=== PATIENT | female | born 1955 | race Caucasian/White ===

== ENCOUNTER → 2018-01-01 15:27 | Outpatient (CLI) | payer BC, SELFPAY | PROVIDERS: PCP Family Medicine; Visit Provider Family Medicine | DX: G47.30 Sleep apnea, unspecified (principal); G47.10 Hypersomnia, unspecified; R06.83 Snoring; R06.81 Apnea, not elsewhere classified; R53.83 Other fatigue | CPT/HCPCS: 95806 ==

== ENCOUNTER → 2018-07-09 12:12 | Outpatient (CLI) | payer BC, SELFPAY | PROVIDERS: PCP Family Medicine; Visit Provider Family Medicine | DX: I49.9 Cardiac arrhythmia, unspecified (principal) | CPT/HCPCS: 93225; 93226 ==

== ENCOUNTER 2019-07-15 16:14 | Inpatient (IN) ==
--- NOTE | 2019-07-15 17:23 | Progress Note ---
Internal Medicine - PN: Subj *Date: 07/15/19 *Time: 17:20 Interval history: Seen in [facility] with c/o fatigue and chest pain. See H&P. In office Hgb=7.2, Hct=27.4. Admitted for further evaluation and treatment. Exam I & O for Last 24 hours: Intake & Output 07/13/19 07/14/19 07/15/19 07/16/19 11:59 11:59 11:59 11:59 Weight 210 lb 11.2 oz Assessment and Plan (1) Chest pain Current visit: Yes Status: Acute Category: Medical Code(s): R07.9 - Chest pain, unspecified (2) Anemia Current visit: Yes Status: Acute Category: Medical Code(s): D64.9 - Anem ia, unspecified (3) Fatigue Current visit: Yes Status: Acute Category: Medical Code(s): R53.83 - Other fatigue (4) Fatigue associated with anemia Current visit: Yes Status: Acute Category: Medical Code(s): D64.9 - Anemia, unspecified (5) Hypertension Current visit: Yes Status: Acute Category: Medical Code(s): I10 - Essential (primary) hypertension - Assessment and plan all Dx Assessment and Plan for all problems:: See orders.
[2019-07-15 17:49] LABS: Basophils # 0.1 K/mm3 (0-0.2); Basophils % 1.2 % (0.1-2.0); Eosinophils # 0.2 K/mm3 (0.0-0.4); Eosinophils % 2.1 % (0.1-12.0); Hemoglobin 8.1 g/dL (12.2-16.2); Lymphocytes % 27.8 % (10-50); Mean Corpuscular HGB Conc 27.7 g/dL (31.8-35.4); Mean Corpuscular Volume 68.7 fl (81-99); Mean Platelet Volume 8.2 fl (7.4-10.4); Monocytes # 0.5 K/mm3 (0.1-1.0); Neutrophils # 4.4 K/mm3 (1.8-7.8); Neutrophils % 61.9 % (37.0-80.0); Platelet Count 244 K/mm3 (142-424); Red Blood Count 4.26 M/mm3 (4.20-5.40)
[2019-07-15 17:50] LABS: Hematocrit 29.2 % (37.0-47.0)
[2019-07-15 17:58] LABS: INR 0.97 (0.9-1.1); Prothrombin Time 10.1 seconds (9.4-11.8)
[2019-07-15 18:03] LABS: Albumin Level 4.2 gm/dL (3.4-5.0); Albumin/Globulin Ratio 1.1 (1.1-1.8); Anion Gap 11.9 mEq/L (5-15); Bilirubin,Total 0.3 mg/dL (0.2-1.0); Calcium 9.4 mg/dL (8.5-10.1); Globulin 3.9 gm/dl (1.3-3.2); Total Protein,Serum 8.1 gm/dL (6.4-8.2)
[2019-07-15 18:40] LABS: Amylase 71 U/L (25-115)
[2019-07-16 05:59] LABS: Basophils % 0.7 % (0.1-2.0); Eosinophils # 0.1 K/mm3 (0.0-0.4); Eosinophils % 2.4 % (0.1-12.0); Lymphocytes # 1.4 K/mm3 (0.7-4.5); Lymphocytes % 30.6 % (10-50); Mean Corpuscular HGB Conc 27.1 g/dL (31.8-35.4); Mean Corpuscular Volume 67.7 fl (81-99); Mean Platelet Volume 8.9 fl (7.4-10.4); Monocytes # 0.4 K/mm3 (0.1-1.0); Monocytes % 7.9 % (1.7-9.3); Neutrophils # 2.7 K/mm3 (1.8-7.8); Neutrophils % 58.4 % (37.0-80.0); Platelet Count 204 K/mm3 (142-424); Red Cell Distribution Width 18.1 % (11.5-17.5); White Blood Count 4.7 K/mm3 (4.8-10.8)
[2019-07-16 06:03] LABS: Hematocrit 27.1 % (37.0-47.0); Hemoglobin 7.3 g/dL (12.2-16.2)
[2019-07-16 06:23] LABS: Calcium 8.9 mg/dL (8.5-10.1); Chol/HDL Ratio 2.9 (1-3.5)
--- NOTE | 2019-07-16 07:19 | Progress Note ---
[facility] Anesthesia Checklist - Patient Identification Patient Identification: Arm Band, Verbal (Name & ) - Structural Data Admitted From: Inpatient Planned Operative Procedure/s: egd Consent for Planned Operative Procedure(s) Verified: Yes Verified Documents: History and Physical - NPO Status Verified Time NPO: 00:00 - Additional verifications Patient : No Anesthesia Reactions: No Hx Blood Transfusions: No Blood Transfusion Reaction: No Cephalosporin Allergy: No Previous Colonoscopy: Yes - Cardiovascular Assessment Heart Sounds: S1 & S2 Pulse Strength: Baseline Pulse Rhythm: Regular Peripheral Edema: No - Airway Assessment C-Spine Mobility Assessed: Yes TMJ Mobility Assessed: Yes - Neurological Assessment Level of Consciousness: Awake, Alert, Appropriate Hx Seizures: No Numbness or tingling in extremities: No - Anesthesia Plan Anesthesia Risk discussed: Yes Anesthesia Plan: Verified ASA Class: II Anesthesia Type: [facility] History I have reviewed the patient's past medical history: Yes Medical History: Reports:: Hyperlipidemia, Hypertension Denies:: Cancer, Diabetes Mellitus Type 1, Diabetes Mellitus Type 2, MRSA *Have you ever received a pneumonia vaccine?: No *Have you received a flu vaccine this season?: No Other Medical History: Reports: Anemia, Arthritis, Hypothyroidism Anesthesia experience/problems:: none Laterality Cases: Bilateral: Tonsillectomy Amputation: No Fractures: No - *Social History Educational Level: Completed College Smoking Status: Never smoker Alcohol Intake: never Substance Use Type: unknown *Occupational Status:: retired Housing: house Household Members: spouse *Travel in the last 8 weeks: None Family Hx:: Cancer, Diabetes, Heart Attack, Hypertension
--- NOTE | 2019-07-16 07:40 | Consult Report ---
*Admission Date: 07/15/19 *Reason for consult:: Anemia *History of present illness: This is a 63-year-old female seen in consultation from Dr. Montalvo for evaluation regarding anemia. She presented to her primary care provider yesterday with increasing fatigue and vague chest pain. She was found to be significantly anemic. No other obvious abnormality noted. She was admitted for further evaluation and management. This morning she feels "not too bad". No hematemesis. No definitive melena. Review of Systems - Constitutional Denies chills - Eyes Denies change in vision - ENT Denies difficulty swallowing - *Cardiovascular Reports chest pain - *Respiratory Denies cough - *Gastrointestinal Denies abdominal pain, Denies vomiting blood, Denies bright, red blood in stools - *Genitourinary Denies abnormal vaginal bleeding - *Musculoskeletal Denies deformity [facility] History Medical History: Reports:: Hyperlipidemia, Hypertension Denies:: Cancer, Diabetes Mellitus Type 1, Diabetes Mellitus Type 2, MRSA, Seizures *Have you ever received a pneumonia vaccine?: No *Have you received a flu vaccine this season?: No Other Medical History: Reports: Anemia, Arthritis, Hypothyroidism. Denies: Blood Transfusion Reaction Anesthesia experience/problems:: none Laterality Cases: Bilateral: Tonsillectomy Amputation: No Fractures: No - *Social History Educational Level: Completed College Smoking Status: Never smoker Alcohol Intake: never Substance Use Type: unknown *Occupational Status:: retired Housing: house Household Members: spouse *Travel in the last 8 weeks: None Family Hx:: Cancer, Diabetes, Heart Attack, Hypertension Meds Home Medications Medication Instructions Recorded Confirmed Type Allopurinol [Allopurinol 300mg 300 mg PO DAILY 07/15/19 07/15/19 History tablet] Aspirin [Aspirin 81mg chewable 81 mg PO DAILY 07/15/19 07/15/19 History tab] Cetirizine HCl [Zyrtec] 10 mg PO DAILY 07/15/19 07/15/19 History Cholecalciferol (Vitamin D3) 5,000 unit PO DAILY 07/15/19 07/15/19 History [Vitamin D3] Levothyroxine Sodium 75 mcg PO DAILY 07/15/19 07/15/19 History [Levothyroxine 75mcg (0.075mg) Tab] Metoprolol Succinate 12.5 mg PO DAILY 07/15/19 07/15/19 History Nabumetone 750 mg PO DAILY 07/15/19 07/15/19 History Pravastatin Sodium 80 mg PO DAILY 07/15/19 07/15/19 History Sertraline HCl [Zoloft] 150 mg PO DAILY 07/15/19 07/15/19 History Valsartan/Hydrochlorothiazide 1 each PO DAILY 07/15/19 07/15/19 History [Valsartan-Hctz 160-12.5 mg Tab] raNITIdine HCl [Ranitidine HCl] 150 mg PO BID 07/15/19 07/15/19 History Allergies Allergy/AdvReac Type Severity Reaction Status Date / Time No Known Allergies Allergy Verified 07/15/19 17:13 Exam Vital signs and Labs for Last 24 Hours: Temp Pulse Resp BP Pulse Ox 98.3 F 66 18 108/53 L 98 07/16/19 04:00 07/16/19 04:00 07/16/19 04:00 07/16/19 04:00 07/16/19 04:00 Laboratory Results - last 24 hr 07/15/19 17:30: PT 10.1, INR 0.97 07/15/19 17:30: Sodium 137, Potassium 3.9, Chloride 102, Carbon Dioxide 27, Anion Gap 11.9, BUN 17, Creatinine 0.94, Estimated Creat Clear 89, Estimated GFR 61, Est GFR ( Amer) 73, Glucose 85, Calcium 9.4, Total Bilirubin 0.3, AST 12 L, ALT 18, Alkaline Phosphatase 93, Total Protein 8.1, Albumin 4.2, Globulin 3.9 H, Albumin/Globulin Ratio 1.1 07/15/19 17:30: WBC 7.0, RBC 4.26, Hgb 8.1 L, Hct 29.2 L, MCV 68.7 L, MCH 19.0 L , MCHC 27.7 L, RDW 18.0 H, Plt Count 244, MPV 8.2, Neut % (Auto) 61.9, Lymph % (Auto) 27.8, Duval % (Auto) 7.0, Eos % (Auto) 2.1, Baso % (Auto) 1.2, Neut # (Auto) 4.4, Lymph # (Auto) 2.0, Duval # (Auto) 0.5, Eos # (Auto) 0.2, Baso # (Auto) 0.1 07/15/19 17:30: Troponin I < 0.02 07/15/19 17:30: Ferritin 8 07/15/19 17:30: Blood Type O Positive, Antibody Screen Negative 07/15/19 17:30: Amylase 71, Lipase 282 07/16/19 05:50: Sodium 141, Potassium 4.0, Chloride 105, Carbon Dioxide 27, Anion Gap 13.0, BUN 14, Creatinine 0.80, Estimated Creat Clear 90, Estimated GFR 73, Est GFR ( Amer) 88 D, Glucose 95, Calcium 8.9, Triglycerides 104, Cholesterol 163, LDL Cholesterol 85, VLDL Cholesterol 21, HDL Cholesterol 57, Cholesterol/HDL Ratio 2.9 07/16/19 05:50: WBC 4.7 L D, RBC 4.00 L, Hgb 7.3 L*, Hct 27.1 L, MCV 67.7 L, MCH 18.3 L, MCHC 27.1 L, RDW 18.1 H, Plt Count 204, MPV 8.9, Neut % (Auto) 58.4, Lymph % (Auto) 30.6, Duval % (Auto) 7.9, Eos % (Auto) 2.4, Baso % (Auto) 0.7, Neut # (Auto) 2.7, Lymph # (Auto) 1.4, Duval # (Auto) 0.4, Eos # (Auto) 0.1, Baso # (Auto) 0.0 I & O for Last 24 hours: Intake & Output 07/13/19 07/14/19 07/15/19 07/16/19 11:59 11:59 11:59 11:59 Intake Total 577 / 577 Output Total 2200 / 2200 Balance -1623 / -1623 Weight 212 lb 9 oz - Constitutional no acute distress - *Routine Respiratory Exam Absent: respiratory distress - *Routine Cardiovascular Exam Present: RRR - *Routine Abdominal Exam Present: soft Results - Labs 07/16/19 05:50 07/16/19 05:50 Laboratory Results - last 24 hr 07/15/19 17:30: PT 10.1, INR 0.97 07/15/19 17:30: Sodium 137, Potassium 3.9, Chloride 102, Carbon Dioxide 27, Anion Gap 11.9, BUN 17, Creatinine 0.94, Estimated Creat Clear 89, Estimated GFR 61, Est GFR ( Amer) 73, Glucose 85, Calcium 9.4, Total Bilirubin 0.3, AST 12 L, ALT 18, Alkaline Phosphatase 93, Total Protein 8.1, Albumin 4.2, Globulin 3.9 H, Albumin/Globulin Ratio 1.1 07/15/19 17:30: WBC 7.0, RBC 4.26, Hgb 8.1 L, Hct 29.2 L, MCV 68.7 L, MCH 19.0 L , MCHC 27.7 L, RDW 18.0 H, Plt Count 244, MPV 8.2, Neut % (Auto) 61.9, Lymph % (Auto) 27.8, Duval % (Auto) 7.0, Eos % (Auto) 2.1, Baso % (Auto) 1.2, Neut # (Auto) 4.4, Lymph # (Auto) 2.0, Duval # (Auto) 0.5, Eos # (Auto) 0.2, Baso # (Auto) 0.1 07/15/19 17:30: Troponin I < 0.02 07/15/19 17:30: Ferritin 8 07/15/19 17:30: Blood Type O Positive, Antibody Screen Negative 07/15/19 17:30: Amylase 71, Lipase 282 07/16/19 05:50: Sodium 141, Potassium 4.0, Chloride 105, Carbon Dioxide 27, Anion Gap 13.0, BUN 14, Creatinine 0.80, Estimated Creat Clear 90, Estimated GFR 73, Est GFR ( Amer) 88 D, Glucose 95, Calcium 8.9, Triglycerides 104, Cholesterol 163, LDL Cholesterol 85, VLDL Cholesterol 21, HDL Cholesterol 57, Cholesterol/HDL Ratio 2.9 07/16/19 05:50: WBC 4.7 L D, RBC 4.00 L, Hgb 7.3 L*, Hct 27.1 L, MCV 67.7 L, MCH 18.3 L, MCHC 27.1 L, RDW 18.1 H, Plt Count 204, MPV 8.9, Neut % (Auto) 58.4, Lymph % (Auto) 30.6, Duval % (Auto) 7.9, Eos % (Auto) 2.4, Baso % (Auto) 0.7, Neut # (Auto) 2.7, Lymph # (Auto) 1.4, Duval # (Auto) 0.4, Eos # (Auto) 0.1, Baso # (Auto) 0.0 Assessment and Plan (1) Chest pain Current visit: Yes Status: Acute Category: Medical Code(s): R07.9 - Chest pain, unspecified (2) Anemia Current visit: Yes Status: Acute Category: Medical Code(s): D64.9 - Anemia, unspecified EGD this AM (3) Fatigue Current visit: Yes Status: Acute Category: Medical Code(s): R53.83 - Other fatigue (4) Fatigue associated with anemia Current visit: Yes Status: Acute Category: Medical Code(s): D64.9 - Anemia, unspecified (5) Hypertension Current visit: Yes Status: Acute Category: Medical Code(s): I10 - Essential (primary) hypertension
--- NOTE | 2019-07-16 08:54 | Procedure Note ---
- Procedure: Date: 07/16/19 Procedure Performed:: Esophagogastroduodenoscopy with biopsy Indications:: Anemia Performing Provider:: Luis Medina MD Referring Provider:: Dr. Montalvo Sedation:: Monitored anesthesia care Procedure:: After informed consent was obtained the patient was taken to the endoscopy suite. Sedation ensued after the patient was transferred to the left lateral decubitus position. Pulse, blood pressure, and oxygen saturation were monitored throughout the procedure. The endoscope was advanced beyond the duodenal bulb. Retroflexion within the gastric lumen was accomplished. The gastroscope was carefully removed and the patient was transferred to recovery in stable condition. Please see "findings" and "specimens" below for detail. Findings:: Fairly large sliding hiatal hernia Punctate erythematous changes in cardia / SHH with focal tiny clot (no active bleeding) Very small shallow (essentially healed) duodenal bulb/duodenal sweep ulcerations with no sign of active bleeding Specimens:: Antrum Duodenal bulb/sweep Recommendations:: Continue proton pump inhibition Repeat EGD in 6-8 weeks Colonoscopy at time of repeat EGD UGI/SBFT in near future Capsule endoscopy after UGI/SBFT If no other etiology for bleeding found she will be referred to Dr. Magen Amador at the [facility] for consideration of hiatal hernia repair. Complications:: No immediate Estimated blood obtained (mL): 1
--- NOTE | 2019-07-16 09:03 | Progress Note ---
Internal Medicine - PN: Subj *Date: 07/16/19 *Time: 08:59 Interval history: Patient just returned from EGD this morning. She states her chest pain has improved. Dr. Medina did find a fairly large sliding hiatal hernia and a very small shallow duodenal ulcer. He felt she should continue PPIs and have a repeat EGD in 6 to 8 weeks along with a colonoscopy. He also felt she should have an upper GI and small bowel follow-through in the near future and possibly a capsule endoscopy. He felt if no other etiology was found for the bleeding, she would need to be referred to Dr. Magen Amador at for hiatal hernia repair. The patient's H&H has decreased to this morning. She will need some blood. Exam Vital signs and Labs for Last 24 Hours: Temp Pulse Resp BP Pulse Ox 98.3 F 66 18 108/53 L 98 07/16/19 04:00 07/16/19 04:00 07/16/19 04:00 07/16/19 04:00 07/16/19 08:08 Laboratory Results - last 24 hr 07/15/19 17:30: PT 10.1, INR 0.97 07/15/19 17:30: Sodium 137, Potassium 3.9, Chloride 102, Carbon Dioxide 27, Anion Gap 11.9, BUN 17, Creatinine 0.94, Estimated Creat Clear 89, Estimated GFR 61, Est GFR ( Amer) 73, Glucose 85, Calcium 9.4, Total Bilirubin 0.3, AST 12 L, ALT 18, Alkaline Phosphatase 93, Total Protein 8.1, Albumin 4.2, Globulin 3.9 H, Albumin/Globulin Ratio 1.1 07/15/19 17:30: WBC 7.0, RBC 4.26, Hgb 8.1 L, Hct 29.2 L, MCV 68.7 L, MCH 19.0 L , MCHC 27.7 L, RDW 18.0 H, Plt Count 244, MPV 8.2, Neut % (Auto) 61.9, Lymph % (Auto) 27.8, Davis % (Auto) 7.0, Eos % (Auto) 2.1, Baso % (Auto) 1.2, Neut # (Auto) 4.4, Lymph # (Auto) 2.0, Davis # (Auto) 0.5, Eos # (Auto) 0.2, Baso # (Auto) 0.1 07/15/19 17:30: Troponin I < 0.02 07/15/19 17:30: Ferritin 8 07/15/19 17:30: Blood Type O Positive, Antibody Screen Negative 07/15/19 17:30: Amylase 71, Lipase 282 07/16/19 05:50: Sodium 141, Potassium 4.0, Chloride 105, Carbon Dioxide 27, Anion Gap 13.0, BUN 14, Creatinine 0.80, Estimated Creat Clear 90, Estimated GFR 73, Est GFR ( Amer) 88 D, Glucose 95, Calcium 8.9, Triglycerides 104, Cholesterol 163, LDL Cholesterol 85, VLDL Cholesterol 21, HDL Cholesterol 57, Cholesterol/HDL Ratio 2.9 07/16/19 05:50: WBC 4.7 L D, RBC 4.00 L, Hgb 7.3 L*, Hct 27.1 L, MCV 67.7 L, MCH 18.3 L, MCHC 27.1 L, RDW 18.1 H, Plt Count 204, MPV 8.9, Neut % (Auto) 58.4, Lymph % (Auto) 30.6, Davis % (Auto) 7.9, Eos % (Auto) 2.4, Baso % (Auto) 0.7, Neut # (Auto) 2.7, Lymph # (Auto) 1.4, Davis # (Auto) 0.4, Eos # (Auto) 0.1, Baso # (Auto) 0.0 I & O for Last 24 hours: Intake & Output 07/13/19 07/14/19 07/15/19 07/16/19 11:59 11:59 11:59 11:59 Intake Total 577 / 577 Output Total 2200 / 2200 Balance -1623 / -1623 Weight 212 lb 9 oz - Constitutional no acute distress - *Routine Respiratory Exam Present: CTA bilaterally - *Routine Cardiovascular Exam Present: RRR - *Routine Abdominal Exam Present: soft, normoactive bowel sounds. Absent: tenderness - *Routine Extremities Exam Absent: cyanosis, clubbing, edema - *Routine Skin Exam Present: pallor, warm. Absent: rash - *Routine Neurological Exam Present: alert, oriented X3 Assessment and Plan (1) Chest pain Current visit: Yes Status: Acute Category: Medical Code(s): R07.9 - Chest pain, unspecified (2) Anemia Current visit: Yes Status: Acute Category: Medical Code(s): D64.9 - Anemia, unspecified (3) Fatigue Current visit: Yes Status: Acute Category: Medical Code(s): R53.83 - Other fatigue (4) Fatigue associated with anemia Current visit: Yes Status: Acute Category: Medical Code(s): D64.9 - Anemia, unspecified (5) Hypertension Current visit: Yes Status: Acute Category: Medical Code(s): I10 - Essential (primary) hypertension (6) Hiatal hernia Current visit: Yes Status: Acute Category: Medical Code(s): K44.9 - Diaphragmatic hernia without obstruction or gangrene (7) Duodenal ulcer Current visit: Yes Status: Acute Category: Medical Code(s): K26.9 - Duodenal ulcer, unspecified as acute or chronic, without hemorrhage or perforation - Assessment and plan all Dx Assessment and Plan for all problems:: Will give 2 units of PRBC's this am and discuss further care with Dr. Montalvo.
--- NOTE | 2019-07-16 09:24 | Pharmacy Consult Notes ---
[facility] Pharmacy VTE Monitoring - Patient Demographics Admission date: 07/16/19 Report Date: 07/16/19 Time: 09:24 Allergies/Adverse Reactions: Patient Allergies No Known Allergies Allergy (Verified 07/15/19 17:13) Height: 1.57 m Weight: 96.417 kg Patient Problems: Current Active Problems Chest pain (Acute) Anemia (Acute) Fatigue (Acute) Fatigue associated with anemia (Acute) Hypertension (Acute) Hiatal hernia (Acute) Duodenal ulcer (Acute) - VTE Risk Labs: VTE Related Lab Results Hgb 7.3 g/dL (12.2-16.2) L* 07/16/19 05:50 Hct 27.1 % (37.0-47.0) L 07/16/19 05:50 Plt Count 204 K/mm3 (142-424) 07/16/19 05:50 PT 10.1 seconds (9.4-11.8) 07/15/19 17:30 INR 0.97 (0.9-1.1) 07/15/19 17:30 BUN 14 mg/dL (7-18) 07/16/19 05:50 Creatinine 0.80 mg/dL (0.55-1.02) 07/16/19 05:50 Estimated Creat Clear 90 mL/min (50-200) 07/16/19 05:50 VTE Score: 1 - Prophylaxis Types of VTE Prophylaxis: TEDS Knee High Location of Applied Device: Bilateral Lower Extremeties (JIGAR HOSE ORDERED), Not Applicable
[2019-07-16 18:06] LABS: Hematocrit 34.5 % (37.0-47.0)
[2019-07-16 18:07] LABS: Hemoglobin 10.2 g/dL (12.2-16.2)
--- NOTE | 2019-07-17 09:32 | Progress Note ---
Subjective Patient reports: feels better Exam Vital signs and Labs for Last 24 Hours: Temp Pulse Resp BP Pulse Ox 98.4 F 67 16 109/51 L 94 L 07/17/19 04:00 07/17/19 04:00 07/17/19 04:00 07/17/19 04:00 07/17/19 04:00 Laboratory Results - last 24 hr 07/15/19 13:20: Stool Occult Blood Negative 07/15/19 17:30: Blood Type O Positive, Antibody Screen Negative, Crossmatch (AHG) See Detail 07/16/19 05:50: Blood Type Confirm O Positive 07/16/19 17:50: Hgb 10.2 L D, Hct 34.5 L I & O for Last 24 hours: Intake & Output 07/14/19 07/15/19 07/16/19 07/17/19 11:59 11:59 11:59 10:59 Intake Total 577 / 577 2311 / 2311 Output Total 2200 / 2200 Balance -1623 / -1623 2310 / 2311 Weight 212 lb 9 oz - Constitutional no acute distress - *Routine Respiratory Exam Absent: respiratory distress - *Routine Cardiovascular Exam Present: RRR Progress Note: A&P (1) Chest pain Status: Acute Current Visit: Yes (2) Anemia Status: Acute Assessment and plan: Possibly secondary to focal bleeding of gastric cardia at herniation site. Possibly secondary to duodenal ulcerations. Possibly secondary to other etiology as yet to be determined. Okay from surgical standpoint for discharge home with close outpatient follow-up Repeat EGD and perform colonoscopy in near future UGI/SBFT as outpatient Likely capsule endoscopy as outpatient Possible referral to Dr. Magen Amador at the [facility] for discussion regarding possible repair of hiatal hernia (after above) Current Visit: Yes (3) Fatigue Status: Acute Current Visit: Yes (4) Fatigue associated with anemia Status: Acute Current Visit: Yes (5) Hypertension Status: Acute Current Visit: Yes (6) Hiatal hernia Status: Acute Current Visit: Yes (7) Duodenal ulcer Status: Acute Current Visit: Yes
[2019-07-17 13:01] LABS: Basophils # 0.1 K/mm3 (0-0.2); Basophils % 0.8 % (0.1-2.0); Eosinophils # 0.1 K/mm3 (0.0-0.4); Eosinophils % 2.3 % (0.1-12.0); Hematocrit 35.7 % (37.0-47.0); Hemoglobin 10.3 g/dL (12.2-16.2); Lymphocytes # 1.6 K/mm3 (0.7-4.5); Lymphocytes % 25.5 % (10-50); Mean Corpuscular HGB Conc 28.9 g/dL (31.8-35.4); Mean Corpuscular Volume 73.5 fl (81-99); Mean Platelet Volume 7.4 fl (7.4-10.4); Monocytes # 0.4 K/mm3 (0.1-1.0); Neutrophils % 65.4 % (37.0-80.0); Platelet Count 214 K/mm3 (142-424); Red Blood Count 4.85 M/mm3 (4.20-5.40); Red Cell Distribution Width 21.2 % (11.5-17.5); White Blood Count 6.2 K/mm3 (4.8-10.8)
[2019-07-17 13:14] LABS: Anion Gap 13.1 mEq/L (5-15); Calcium 9.4 mg/dL (8.5-10.1)
--- NOTE | 2019-07-19 21:16 | Discharge Summary ---
General - General Admission date:: 07/15/19 Discharge date: 07/17/19 HPI HPI: Ms. Lew is a 63-year-old female who was seen in the office of [facility] on 07/15/2019 with complaints of fatigue and chest pain. Her hemoglobin in the office was 7.2. She was admitted for further evaluation and treatment. After rechecking her hemoglobin, it had come up to 8.1. A lood transfusion was held and her troponins were negative. She was kept overnight for monitoring. She did have a colonoscopy in 2014 and had a history of an EGD as well. Surgery was consulted. Hospital Course Hospital Course: CXR showed a hiatal hernia but was otherwise negative. Dr. Medina saw the patient and planned for an EGD. This was performed on 07/16/2019 and he found a fairly large sliding hiatal hernia and a very small shallow duodenal bulb ulcer. He recommended to continue PPIs and repeat an EGD in 6 to 8 weeks along with a colonoscopy. He felt she may be an upper GI and small bowel follow-through and a capsule endoscopy. If no other etiology for bleeding was found, he wanted to refer the patient to Dr. Magen Amador at for consideration of her hiatal hernia repair. The patient did tolerate the procedure well. Her hemoglobin dropped to 7.3. She was therefore transfused with 2 units of packed red blood cells. Her troponin was negative and her chest pain resolved. Her stool was negative for blood. Her iron was found to be low. The patient felt better after her blood transfusion and was stable to be discharged home with close outpatient follow- up. Objective Vital signs: Temp Pulse Resp BP Pulse Ox 97.7 F 60 18 133/67 98 07/17/19 08:00 07/17/19 12:00 07/17/19 08:00 07/17/19 08:00 07/17/19 08:00 Narrative: - Constitutional no acute distress - *Routine Respiratory Exam Present: CTA bilaterally - *Routine Cardiovascular Exam Present: RRR - *Routine Abdominal Exam Present: soft, normoactive bowel sounds. Absent: tenderness - *Routine Extremities Exam Absent: cyanosis, clubbing, edema - *Routine Skin Exam Present: pallor, warm. Absent: rash - *Routine Neurological Exam Present: alert, oriented X3 DS: Diagnosis - Discharge Diagnosis (1) Chest pain Status: Acute (2) Anemia Status: Acute (3) Fatigue Status: Acute (4) Fatigue associated with anemia Status: Acute (5) Hypertension Status: Acute (6) Hiatal hernia Status: Acute (7) Duodenal ulcer Status: Acute Discharge Plan - Patient Discharge Instructions ACTIVITY: Continue current activity DIET: continue same diet Patient Instructions: Anemia, Duodenal Ulcer, Upper GI Endoscopy, DI for Upper GI Endoscopy, DI for Surgical Site Infection - Follow up Plan Follow up with: Delmer Montalvo MD [Primary Care Provider] - 07/19/19 Luis Medina MD [Staff Physician] - 1 week Disposition: Home, Self-Long Term Medications: Home Medications Medication Instructions Recorded Confirmed Type Allopurinol [Allopurinol 300mg 300 mg PO DAILY 07/15/19 07/15/19 History tablet] Cetirizine HCl [Zyrtec] 10 mg PO DAILY 07/15/19 07/15/19 History Cholecalciferol (Vitamin D3) 5,000 unit PO DAILY 07/15/19 07/15/19 History [Vitamin D3] Levothyroxine Sodium 75 mcg PO DAILY 07/15/19 07/15/19 History [Levothyroxine 75mcg (0.075mg) Tab] Metoprolol Succinate 12.5 mg PO DAILY 07/15/19 07/15/19 History Pravastatin Sodium 80 mg PO DAILY 07/15/19 07/15/19 History Sertraline HCl [Zoloft] 150 mg PO DAILY 07/15/19 07/15/19 History Valsartan/Hydrochlorothiazide 1 each PO DAILY 07/15/19 07/15/19 History [Valsartan-Hctz 160-12.5 mg Tab] raNITIdine HCl [Ranitidine HCl] 150 mg PO BID 07/15/19 07/15/19 History Ferrous Sulfate [Ferrous Sulfate 325 mg PO TID #100 tab 07/17/19 Rx 325mg Tablet] Pantoprazole Sodium [Protonix 40mg 40 mg PO DAILY #30 tablet. 07/17/19 Rx tablet] Prescriptions/Medication Reconciliation: New Pantoprazole Sodium [Protonix 40mg tablet] 40 mg PO DAILY #30 tablet. Ferrous Sulfate [Ferrous Sulfate 325mg Tablet] 325 mg PO TID #100 tab Continued Pravastatin Sodium 80 mg PO DAILY Sertraline HCl [Zoloft] 150 mg PO DAILY Levothyroxine Sodium [Levothyroxine 75mcg (0.075mg) Tab] 75 mcg PO DAILY Allopurinol [Allopurinol 300mg tablet] 300 mg PO DAILY raNITIdine HCl [Ranitidine HCl] 150 mg PO BID Metoprolol Succinate 12.5 mg PO DAILY Valsartan/Hydrochlorothiazide [Valsartan-Hctz 160-12.5 mg Tab] 1 each PO DAILY Cetirizine HCl [Zyrtec] 10 mg PO DAILY Cholecalciferol (Vitamin D3) [Vitamin D3] 5,000 unit PO DAILY Discontinued Nabumetone 1,500 mg PO DAILY Aspirin [Aspirin 81mg chewable tab] 81 mg PO DAILY - Problem Reconciliation Problems Reviewed?: Yes
== END 2019-07-17 15:05 | disposition home or self-care (01) | DRG 384 ==
LOC: 2ND → OBSVTOIN 16:59
PROVIDERS: ADMIT Family Medicine; ATTEND Family Medicine
CPT/HCPCS: 36415; 71020; 71046; 80048; 80053; 80061; 82150; 82272; 82378; 82607; 82728; 83540; 83550; 83690; 84484; 85014; 85018; 85025; 85610; 86850; 90686; G0328; P9016

== ENCOUNTER → 2019-08-08 08:59 | Outpatient (CLI) | payer BC, SELFPAY ==
--- NOTE | 2019-08-08 09:12 | FL_ITS ---
PROCEDURE: FL UPPER GI SMALL BOWEL CLINICAL INDICATION: gastric ulcer Anemia COMPARISON: No exams were available for comparison TECHNIQUE: FLUOROSCOPY TIME : 2 minutes and 27 seconds FINDINGS: There is mild spasm of the cricopharyngeus muscle. There is a moderate-sized hiatal hernia containing 1/3 of the stomach. This did not reduce during the course of the exam. No obvious ulcer or mass is evident. There is a non constricting Schatzki's ring. The duodenum has an unremarkable appearance as does the remaining portion of the stomach. No ulcer evident. Small bowel examination also performed. No small bowel dilatation, mass, or mucosal abnormality. Spot views of the terminal ileum are unremarkable. The appendix did fill IMPRESSION: 1. Moderate-sized hiatal hernia with non constricting Schatzki's ring. 2. No ulcer or mass identified. 3. Unremarkable small bowel follow through Dictated by: Jude Florian MD 08/16/2019 13:09 Electronically signed by Jude Florian MD in [place] 08/16/2019 13:09
[2019-08-08 09:42] LABS: Hematocrit 41.6 % (37.0-47.0); Hemoglobin 12.1 g/dL (12.2-16.2)
== END ==
PROVIDERS: PCP Family Medicine; Visit Provider Surgery
DX: D64.9 Anemia, unspecified (principal); R13.10 Dysphagia, unspecified
CPT/HCPCS: 36415; 74245; 85014; 85018

== ENCOUNTER → 2020-10-04 11:54 | Outpatient (CLI) | payer BC, SELFPAY ==
[2020-10-04 14:36] LABS: Basophils # 0.1 K/mm3 (0-0.2); Basophils % 0.6 % (0.1-2.0); Eosinophils # 0.1 K/mm3 (0.0-0.4); Eosinophils % 1.7 % (0.1-12.0); Hematocrit 41.6 % (37.0-47.0); Lymphocytes # 2.4 K/mm3 (0.7-4.5); Lymphocytes % 30.1 % (10-50); Mean Corpuscular HGB Conc 33.7 g/dL (31.8-35.4); Mean Corpuscular Hemoglobin 29.9 pg (27.0-31.2); Mean Corpuscular Volume 88.6 fl (81-99); Mean Platelet Volume 7.6 fl (7.4-10.4); Monocytes # 0.6 K/mm3 (0.1-1.0); Neutrophils # 4.8 K/mm3 (1.8-7.8); Neutrophils % 59.7 % (37.0-80.0); Platelet Count 161 K/mm3 (142-424); Red Blood Count 4.69 M/mm3 (4.20-5.40); Red Cell Distribution Width 14.3 % (11.5-17.5)
[2020-10-05 10:58] LABS: Covid-19 Nasal PCR Sendout P&C Negative
== END ==
PROVIDERS: PCP Family Medicine; Visit Provider Nurse Practitioner
DX: Z20.822 Contact with and (suspected) exposure to COVID-19 (principal)
CPT/HCPCS: 36415; 85025; U0004

== ENCOUNTER → 2021-03-15 09:16 | Outpatient (CLI) | payer BC, SELFPAY ==
[2021-03-15 09:18] LABS: Adenovirus,PCR Not Detected (NotDetected)
[2021-03-15 09:19] LABS: Bordetella Pertussis Not Detected (NotDetected); Chlamydophila Pneumoniae, PCR Not Detected (NotDetected); Coronavirus 19, PCR Not Detected (NotDetected); Coronavirus 229E Not Detected (NotDetected); Coronavirus NL63 Not Detected (NotDetected); Coronavirus OC43 Not Detected (NotDetected); Coronovirus HKU1,PCR Not Detected (NotDetected); Human Metapneumovirus Not Detected (NotDetected); Influenza A, PCR Not Detected (NotDetected); Influenza AH1, 2009 Not Detected (NotDetected); Influenza AH1, PCR Not Detected (NotDetected); Influenza AH3,PCR Not Detected (NotDetected); Influenza B, PCR Not Detected (NotDetected); Mycoplasma Pneumoniae, PCR Not Detected (NotDetected); Parainfluenza 1, PCR Not Detected (NotDetected); Parainfluenza 2, PCR Not Detected (NotDetected); Parainfluenza 3, PCR Not Detected (NotDetected); Parainfluenza 4, PCR Not Detected (NotDetected); Rhinovirus/Enterovirus Not Detected (NotDetected)
--- NOTE | 2021-03-15 09:33 | XR_ITS ---
PROCEDURE: XR CHEST PORTABLE CLINICAL HISTORY: COVID OUTPATIENT COMPARISON: CR XR CHEST 2V from 07/15/2019 FINDINGS: Borderline cardiomegaly. No evidence of CHF. Hiatal hernia is present. The lungs are clear without infiltrates, suspicious nodules, or pleural effusions. No acute bony abnormalities. IMPRESSION: Hiatal hernia with borderline cardiomegaly Dictated by: Jude Florian MD 03/15/2021 10:27 Jude Florian MD in [place] 03/15/2021 10:27
[2021-03-15 09:57] LABS: Basophils # 0.1 K/mm3 (0-0.2); Basophils % 0.9 % (0.1-2.0); Eosinophils # 0.2 K/mm3 (0.0-0.4); Eosinophils % 3.9 % (0.1-12.0); Hematocrit 43.2 % (37.0-47.0); Hemoglobin 14.5 g/dL (12.2-16.2); Lymphocytes # 1.6 K/mm3 (0.7-4.5); Lymphocytes % 29.9 % (10-50); Mean Corpuscular HGB Conc 33.6 g/dL (31.8-35.4); Mean Corpuscular Volume 86.2 fl (81-99); Mean Platelet Volume 7.4 fl (7.4-10.4); Monocytes # 0.5 K/mm3 (0.1-1.0); Monocytes % 8.4 % (1.7-9.3); Neutrophils % 56.8 % (37.0-80.0); Platelet Count 198 K/mm3 (142-424); Red Blood Count 5.01 M/mm3 (4.20-5.40); Red Cell Distribution Width 13.3 % (11.5-17.5); White Blood Count 5.3 K/mm3 (4.8-10.8)
[2021-03-15 12:03] LABS: Respiratory Syncytial Virus Detected (NotDetected)
== END ==
LOC: LAB 09:20 → COVID.OUT 09:21
PROVIDERS: Visit Provider Nurse Practitioner
DX: Z20.822 Contact with and (suspected) exposure to COVID-19 (principal); B97.4 Respiratory syncytial virus as the cause of diseases classified elsewhere
CPT/HCPCS: 36415; 71045; 85025; 87581; 87633; 87798

== ENCOUNTER → 2022-03-27 13:37 | Outpatient (CLI) | payer BC, SELFPAY ==
--- NOTE | 2022-03-27 13:42 | XR_ITS ---
FINAL REPORT CLINICAL HISTORY: right foot pain FINDINGS: 2 views of the right foot were obtained. There is no acute fracture or dislocation. The joint spaces are intact. There is a moderate plantar spur. There is soft tissue swelling over the dorsum of the foot up to 12 mm. IMPRESSION: Swelling with no acute bony abnormality. Reviewed, Interpreted and Dictated by Mitlon Guzman MD Transcribed by Leonardo Martinez Authenticated and [facility]
[2022-03-27 21:42] LABS: Basophils # 0.1 K/mm3 (0-0.2); Basophils % 1.1 % (0.1-2.0); Eosinophils # 0.1 K/mm3 (0.0-0.4); Eosinophils % 2.2 % (0.1-12.0); Hematocrit 42.5 % (37.0-47.0); Hemoglobin 13.6 g/dL (12.2-16.2); Lymphocytes # 1.5 K/mm3 (0.7-4.5); Lymphocytes % 27.9 % (10-50); Mean Corpuscular HGB Conc 32.1 g/dL (31.8-35.4); Mean Corpuscular Hemoglobin 29.9 pg (27.0-31.2); Mean Corpuscular Volume 92.9 fl (81-99); Mean Platelet Volume 9.2 fl (7.4-10.4); Monocytes # 0.4 K/mm3 (0.1-1.0); Monocytes % 7.1 % (1.7-9.3); Neutrophils # 3.2 K/mm3 (1.8-7.8); Neutrophils % 61.6 % (37.0-80.0); Platelet Count 180 K/mm3 (142-424); Red Blood Count 4.57 M/mm3 (4.20-5.40); Red Cell Distribution Width 13.6 % (11.5-17.5); White Blood Count 5.2 K/mm3 (4.8-10.8)
[2022-03-27 22:16] LABS: Erythrocyte Sedimentation Rate 19 mm/hr (0-30)
[2022-03-27 23:21] LABS: Alanine Aminotransferase 29 U/L (12-78); Albumin Level 4.3 g/dl (3.5-5.0); Albumin/Globulin Ratio 1.7 (1.1-1.8); Alkaline Phosphatase 82 U/L (38-126); Anion Gap 12.9 mEq/L (5-15); Aspartate Amino Transferase 34 U/L (14-36); Blood Urea Nitrogen 14 mg/dl (7-17); Calcium 9.8 mg/dl (8.4-10.2); Carbon Dioxide 29 mmol/L (22.0-30.0); Chloride 102 mmol/L (98-107); Estimated Glomerular Filt Rate 84 ml/min (>60); GFR (African American) 102 ML/MIN (>60); Globulin 2.6 g/dL (1.3-3.2); Glucose 102 mg/dl (74-100); Potassium 4.9 mmoL/L (3.5-5.1); Sodium 139 mmol/L (136-145); Total Protein,Serum 6.9 g/dl (6.3-8.2); Uric Acid 4.3 mg/dl (2.5-6.2)
[2022-03-27 23:22] LABS: Bilirubin,Total 0.1 mg/dl (0.2-1.3)
[2022-03-27 23:26] LABS: C-Reactive Protein 5.4 mg/L (0-4)
[2022-03-29 09:20] LABS: RA Latex Turbid. 12.7 IU/mL (<14.0)
[2022-03-31 13:12] LABS: Anti-Centromere B Antibodies <0.2 AI (0.0-0.9); Anti-DNA (DS) Ab Qn 2 IU/mL (0-9); Anti-Jo-1 <0.2 AI (0.0-0.9); Anti-Smith Antibody <0.2 AI (0.0-0.9); Antichromatin Antibodies <0.2 AI (0.0-0.9); Antiscleroderma-70 Antibodies <0.2 AI (0.0-0.9); RNP Antibodies <0.2 AI (0.0-0.9); Sjogren's Anti-SS-A 0.3 AI (0.0-0.9); Sjogren's Anti-SS-B <0.2 AI (0.0-0.9)
== END ==
PROVIDERS: PCP Family Medicine; Visit Provider Nurse Practitioner
DX: M79.671 Pain in right foot (principal); E79.0 Hyperuricemia without signs of inflammatory arthritis and tophaceous disease
CPT/HCPCS: 73620; 80053; 84550; 85025; 85651; 86140; 86225; 86235; 86431

== ENCOUNTER → 2022-10-07 16:00 | Outpatient (CLI) | payer MEDICARE, SELFPAY ==
[2022-10-07 19:06] LABS: Basophils # 0.1 K/mm3 (0-0.2); Basophils % 0.8 % (0.1-2.0); Eosinophils # 0.1 K/mm3 (0.0-0.4); Eosinophils % 1.6 % (0.1-12.0); Hematocrit 37.5 % (37.0-47.0); Lymphocytes # 1.9 K/mm3 (0.7-4.5); Lymphocytes % 24.4 % (10-50); Mean Corpuscular Hemoglobin 27.9 pg (27.0-31.2); Mean Corpuscular Volume 87.2 fl (81-99); Mean Platelet Volume 8.7 fl (7.4-10.4); Monocytes # 0.4 K/mm3 (0.1-1.0); Monocytes % 5.2 % (1.7-9.3); Neutrophils # 5.4 K/mm3 (1.8-7.8); Platelet Count 197 K/mm3 (142-424); Red Cell Distribution Width 13.8 % (11.5-17.5)
[2022-10-07 19:44] LABS: Microalbumin/Creatinine Ratio 17.5
[2022-10-07 19:49] LABS: Alanine Aminotransferase 34 U/L (12-78); Albumin Level 4.9 g/dl (3.5-5.0); Albumin/Globulin Ratio 1.8 (1.1-1.8); Alkaline Phosphatase 79 U/L (38-126); Aspartate Amino Transferase 36 U/L (14-36); Bilirubin,Total 0.3 mg/dl (0.2-1.3); Blood Urea Nitrogen 23 mg/dl (7-17); Calcium 9.4 mg/dl (8.4-10.2); Carbon Dioxide 28 mmol/L (22.0-30.0); Chloride 103 mmol/L (98-107); Chol/HDL Ratio 3.3 (1-3.5); Cholesterol 170 mg/dl (140-200); Estimated Glomerular Filt Rate 72 ml/min (>60); GFR (African American) 87 ML/MIN (>60); Globulin 2.7 g/dL (1.3-3.2); Glucose 94 mg/dl (74-100); HDL Cholesterol 51 mg/dl (40-60); Sodium 139 mmol/L (136-145); Total Protein,Serum 7.6 g/dl (6.3-8.2); Triglycerides 147 mg/dl (30-150); Uric Acid 3.9 mg/dl (2.5-6.2); VLDL Cholesterol 29 mg/dL (0-40)
[2022-10-07 19:51] LABS: Creatinine,Urine Random 62 mg/dL (Not Estab.)
[2022-10-07 20:07] LABS: Free T4 (Free Thyroxine) 1.39 ng/dl (0.78-2.19)
[2022-10-07 20:09] LABS: 25-OH Vitamin D, Total 55.6 ng/mL (30-100)
[2022-10-07 20:10] LABS: Hemoglobin A1C 5.7 % (4.0-6.0)
[2022-10-07 20:21] LABS: Thyroid Stimulating Hormone 2.34 uIU/mL (0.465-4.68)
[2022-10-07 20:38] LABS: Vitamin B12 560 pg/mL (239-931)
== END ==
PROVIDERS: PCP Nurse Practitioner; Visit Provider Nurse Practitioner
DX: D64.9 Anemia, unspecified (principal); E03.9 Hypothyroidism, unspecified; E55.9 Vitamin D deficiency, unspecified; E78.5 Hyperlipidemia, unspecified; E79.0 Hyperuricemia without signs of inflammatory arthritis and tophaceous disease; F41.8 Other specified anxiety disorders; I10 Essential (primary) hypertension; J30.9 Allergic rhinitis, unspecified; K21.9 Gastro-esophageal reflux disease without esophagitis; R07.9 Chest pain, unspecified; R73.9 Hyperglycemia, unspecified; Z78.0 Asymptomatic menopausal state
CPT/HCPCS: 80053; 80061; 82043; 82306; 82570; 82607; 83036; 84439; 84443; 84550; 85025

== ENCOUNTER → 2022-12-29 11:57 | Outpatient (CLI) | payer MEDICARE, SELFPAY ==
--- NOTE | 2022-12-29 12:01 | XR_ITS ---
FINAL REPORT CLINICAL HISTORY: LLL pneumonia, bronchitis COMPARISON: 03/15/2021 FINDINGS: Two views of the chest were obtained. The heart size and pulmonary vascularity are within normal limits. The mediastinum is normal. No acute pulmonary abnormality is identified. There is no pneumothorax. The bony thorax is intact. There is a moderate hiatal hernia. IMPRESSION: No active cardiopulmonary disease. Reviewed, Interpreted and Dictated by Rui Almonte III, MD Transcribed by Farideh Mcdonald Authenticated and [facility]
== END ==
PROVIDERS: PCP Nurse Practitioner; Visit Provider Nurse Practitioner
DX: J18.9 Pneumonia, unspecified organism (principal); J40 Bronchitis, not specified as acute or chronic
CPT/HCPCS: 71046

== ENCOUNTER → 2022-12-29 14:14 | Outpatient (CLI) | payer MEDICARE, SELFPAY ==
[2022-12-29 18:15] LABS: Coronavirus 19, PCR Not Detected (NotDetected); Influenza A, PCR Not Detected (NotDetected); Influenza B, PCR Not Detected (NotDetected)
== END ==
PROVIDERS: PCP Nurse Practitioner; Visit Provider Nurse Practitioner
DX: J06.9 Acute upper respiratory infection, unspecified (principal); J18.9 Pneumonia, unspecified organism; J40 Bronchitis, not specified as acute or chronic
CPT/HCPCS: C9803; U0003; U0005

== ENCOUNTER → 2023-05-11 23:27 | Outpatient (CLI) | payer MEDICARE, SELFPAY ==
[2023-05-11 19:38] LABS: Basophils % 0.4 % (0.1-2.0); Eosinophils # 0.1 K/mm3 (0.0-0.4); Eosinophils % 1.8 % (0.1-12.0); Hematocrit 43.5 % (37.0-47.0); Hemoglobin 13.9 g/dL (12.2-16.2); Lymphocytes # 1.5 K/mm3 (0.7-4.5); Lymphocytes % 20.8 % (10-50); Mean Corpuscular HGB Conc 32.1 g/dL (31.8-35.4); Mean Corpuscular Hemoglobin 28.2 pg (27.0-31.2); Mean Corpuscular Volume 87.8 fl (81-99); Mean Platelet Volume 9.5 fl (7.4-10.4); Monocytes # 0.4 K/mm3 (0.1-1.0); Monocytes % 5.3 % (1.7-9.3); Neutrophils # 5.2 K/mm3 (1.8-7.8); Neutrophils % 71.5 % (37.0-80.0); Platelet Count 166 K/mm3 (142-424); Red Blood Count 4.95 M/mm3 (4.20-5.40); Red Cell Distribution Width 15.1 % (11.5-17.5); White Blood Count 7.2 K/mm3 (4.8-10.8)
[2023-05-11 19:47] LABS: Uric Acid 3.5 mg/dl (2.5-6.2)
[2023-05-11 20:11] LABS: Erythrocyte Sedimentation Rate 21 mm/hr (0-30)
[2023-05-11 20:57] LABS: C-Reactive Protein 5.7 mg/L (0-4)
[2023-05-14 12:01] LABS: RA Latex Turbid. 10.6 IU/mL (<14.0)
[2023-05-14 15:14] LABS: Anti-Centromere B Antibodies <0.2 AI (0.0-0.9); Anti-DNA (DS) Ab Qn 1 IU/mL (0-9); Anti-Jo-1 <0.2 AI (0.0-0.9); Anti-Smith Antibody <0.2 AI (0.0-0.9); Antichromatin Antibodies <0.2 AI (0.0-0.9); Antiscleroderma-70 Antibodies <0.2 AI (0.0-0.9); RNP Antibodies <0.2 AI (0.0-0.9); Sjogren's Anti-SS-A 0.2 AI (0.0-0.9); Sjogren's Anti-SS-B <0.2 AI (0.0-0.9)
[2023-05-20 08:21] LABS: Antinuclear Antibodies, IFA POSITIVE
== END ==
PROVIDERS: PCP Nurse Practitioner; Visit Provider Nurse Practitioner
DX: M25.50 Pain in unspecified joint (principal); R07.9 Chest pain, unspecified
CPT/HCPCS: 84550; 85025; 85651; 86038; 86140; 86225; 86235; 86431

== ENCOUNTER → 2023-08-11 06:45 | Outpatient (CLI) | payer MEDICARE, SELFPAY ==
[2023-08-11 19:00] LABS: Basophils % 0.2 % (0.1-2.0); Eosinophils # 0.1 K/mm3 (0.0-0.4); Eosinophils % 2.8 % (0.1-12.0); Hematocrit 39.6 % (37.0-47.0); Lymphocytes # 1.2 K/mm3 (0.7-4.5); Lymphocytes % 24.2 % (10-50); Mean Corpuscular HGB Conc 32.9 g/dL (31.8-35.4); Mean Corpuscular Hemoglobin 30.2 pg (27.0-31.2); Mean Corpuscular Volume 91.7 fl (81-99); Mean Platelet Volume 9.5 fl (7.4-10.4); Monocytes # 0.3 K/mm3 (0.1-1.0); Monocytes % 6.1 % (1.7-9.3); Neutrophils # 3.3 K/mm3 (1.8-7.8); Neutrophils % 66.7 % (37.0-80.0); Platelet Count 129 K/mm3 (142-424); Red Blood Count 4.32 M/mm3 (4.20-5.40); Red Cell Distribution Width 13.7 % (11.5-17.5); White Blood Count 4.9 K/mm3 (4.8-10.8)
[2023-08-11 19:17] LABS: Alanine Aminotransferase 35 U/L (12-78); Alkaline Phosphatase 68 U/L (38-126); Aspartate Amino Transferase 42 U/L (14-36); Bilirubin,Total 0.4 mg/dl (0.2-1.3); Chloride 103 mmol/L (98-107); Cholesterol 163 mg/dl (140-200); Triglycerides 162 mg/dl (30-150); VLDL Cholesterol 32 mg/dL (0-40)
[2023-08-11 19:26] LABS: Direct LDL Cholesterol 94.69 mg/dL (100-129)
[2023-08-11 19:31] LABS: Free T4 (Free Thyroxine) 1.25 ng/dl (0.78-2.19)
[2023-08-11 19:44] LABS: Thyroid Stimulating Hormone 3.77 uIU/mL (0.465-4.68)
[2023-08-11 19:58] LABS: Potassium 4.2 mmoL/L (3.5-5.1); Sodium 138 mmol/L (136-145)
[2023-08-11 20:01] LABS: Albumin Level 4.4 g/dl (3.5-5.0); Albumin/Globulin Ratio 1.8 (1.1-1.8); Anion Gap 13.2 mEq/L (5-15); Blood Urea Nitrogen 20 mg/dl (7-17); Carbon Dioxide 26 mmol/L (22.0-30.0); Chol/HDL Ratio 3.5 (1-3.5); Estimated Glomerular Filt Rate 72 ml/min (>60); GFR (African American) 87 ML/MIN (>60); Globulin 2.5 g/dL (1.3-3.2); Glucose 104 mg/dl (74-100); HDL Cholesterol 46 mg/dl (40-60); Total Protein,Serum 6.9 g/dl (6.3-8.2)
[2023-08-11 20:03] LABS: Hemoglobin A1C 5.4 % (4.0-6.0)
== END ==
PROVIDERS: PCP Nurse Practitioner; Visit Provider Nurse Practitioner
DX: E03.9 Hypothyroidism, unspecified (principal); E78.5 Hyperlipidemia, unspecified; I10 Essential (primary) hypertension; K21.9 Gastro-esophageal reflux disease without esophagitis; R07.9 Chest pain, unspecified; R73.01 Impaired fasting glucose; E79.0 Hyperuricemia without signs of inflammatory arthritis and tophaceous disease
CPT/HCPCS: 80053; 80061; 83036; 84439; 84443; 85025

== ENCOUNTER 2024-02-01 11:35 | Outpatient (CLI) | payer MEDICARE, SELFPAY ==
[2024-02-01 20:44] LABS: Basophils % 0.7 % (0.1-2.0); Eosinophils # 0.1 K/mm3 (0.0-0.4); Eosinophils % 2.1 % (0.1-12.0); Hematocrit 42.8 % (37.0-47.0); Hemoglobin 13.7 g/dL (12.2-16.2); Lymphocytes # 1.4 K/mm3 (0.7-4.5); Lymphocytes % 25.8 % (10-50); Mean Corpuscular Hemoglobin 28.8 pg (27.0-31.2); Mean Platelet Volume 9.3 fl (7.4-10.4); Monocytes # 0.4 K/mm3 (0.1-1.0); Monocytes % 6.4 % (1.7-9.3); Neutrophils # 3.6 K/mm3 (1.8-7.8); Platelet Count 170 K/mm3 (142-424); Red Blood Count 4.76 M/mm3 (4.20-5.40); Red Cell Distribution Width 14.1 % (11.5-17.5); White Blood Count 5.6 K/mm3 (4.8-10.8)
[2024-02-01 21:20] LABS: Alanine Aminotransferase 38 U/L (12-78); Albumin Level 4.6 g/dl (3.5-5.0); Albumin/Globulin Ratio 1.6 (1.1-1.8); Alkaline Phosphatase 80 U/L (38-126); Anion Gap 13.7 mEq/L (5-15); Aspartate Amino Transferase 46 U/L (14-36); Bilirubin,Total 0.5 mg/dl (0.2-1.3); Blood Urea Nitrogen 21 mg/dl (7-17); Calcium 10.1 mg/dl (8.4-10.2); Carbon Dioxide 31 mmol/L (22.0-30.0); Chloride 98 mmol/L (98-107); Cholesterol 162 mg/dl (140-200); Estimated Glomerular Filt Rate 63 ml/min (>60); GFR (African American) 76 ML/MIN (>60); Globulin 2.8 g/dL (1.3-3.2); Glucose 94 mg/dl (74-100); HDL Cholesterol 54 mg/dl (40-60); Potassium 3.7 mmoL/L (3.5-5.1); Sodium 139 mmol/L (136-145); Total Protein,Serum 7.4 g/dl (6.3-8.2); Triglycerides 129 mg/dl (30-150); VLDL Cholesterol 26 mg/dL (0-40)
[2024-02-01 21:33] LABS: Free T4 (Free Thyroxine) 1.82 ng/dl (0.78-2.19)
[2024-02-01 21:38] LABS: Direct LDL Cholesterol 86.56 mg/dL (100-129)
[2024-02-01 21:52] LABS: Thyroid Stimulating Hormone 2.06 uIU/mL (0.465-4.68)
[2024-02-01 22:18] LABS: Vitamin B12 > 1000 pg/mL (239-931)
[2024-02-01 22:24] LABS: Hemoglobin A1C 5.2 % (4.0-6.0)
[2024-02-01 22:35] LABS: Creatinine,Urine Random 210 mg/dL (Not Estab.)
[2024-02-01 22:38] LABS: Microalbumin/Creatinine Ratio 15.2
[2024-02-01 23:52] LABS: 25-OH Vitamin D, Total 58.8 ng/mL (30-100)
== END 2024-02-01 23:59 | disposition home or self-care (01) ==
LOC: LAB.DROPOF 02-02 11:35
PROVIDERS: PCP Nurse Practitioner; Visit Provider Nurse Practitioner
DX: E55.9 Vitamin D deficiency, unspecified (principal); E78.5 Hyperlipidemia, unspecified; J06.9 Acute upper respiratory infection, unspecified; E03.9 Hypothyroidism, unspecified; R73.01 Impaired fasting glucose; I10 Essential (primary) hypertension; Z68.38 Body mass index [BMI] 38.0-38.9, adult
CPT/HCPCS: 80053; 80061; 82043; 82306; 82570; 82607; 83036; 84439; 84443; 85025

== ENCOUNTER 2024-10-12 09:11 | Outpatient (CLI) | payer MEDICARE, SELFPAY ==
[2024-10-12 17:58] LABS: Basophils % 0.4 % (0.1-2.0); Eosinophils # 0.1 K/mm3 (0.0-0.4); Eosinophils % 1.8 % (0.1-12.0); Hematocrit 43.3 % (37.0-47.0); Lymphocytes # 1.6 K/mm3 (0.7-4.5); Lymphocytes % 28.8 % (10-50); Mean Corpuscular HGB Conc 32.3 g/dL (31.8-35.4); Mean Corpuscular Hemoglobin 28.6 pg (27.0-31.2); Mean Corpuscular Volume 88.4 fl (81-99); Mean Platelet Volume 9.9 fl (7.4-10.4); Monocytes # 0.5 K/mm3 (0.1-1.0); Monocytes % 8.4 % (1.7-9.3); Neutrophils # 3.4 K/mm3 (1.8-7.8); Neutrophils % 60.2 % (37.0-80.0); Platelet Count 77 K/mm3 (142-424); Red Cell Distribution Width 12.5 % (11.5-17.5); White Blood Count 5.6 K/mm3 (4.8-10.8)
[2024-10-12 18:23] LABS: Microalbumin/Creatinine Ratio 22.4
[2024-10-12 18:28] LABS: Creatinine,Urine Random 158 mg/dL (Not Estab.)
[2024-10-12 18:35] LABS: Alanine Aminotransferase 28 U/L (12-78); Albumin Level 4.5 g/dl (3.5-5.0); Alkaline Phosphatase 65 U/L (38-126); Anion Gap 13.9 mEq/L (5-15); Aspartate Amino Transferase 31 U/L (14-36); Bilirubin,Total 0.4 mg/dl (0.2-1.3); Blood Urea Nitrogen 14 mg/dl (7-17); Calcium 9.7 mg/dl (8.4-10.2); Carbon Dioxide 30 mmol/L (22.0-30.0); Chloride 99 mmol/L (98-107); Chol/HDL Ratio 3.4 (1-3.5); Cholesterol 142 mg/dl (140-200); Estimated Glomerular Filt Rate 83 ml/min (>60); GFR (African American) 101 ML/MIN (>60); Globulin 2.3 g/dL (1.3-3.2); Glucose 87 mg/dl (74-100); HDL Cholesterol 42 mg/dl (40-60); Potassium 3.9 mmoL/L (3.5-5.1); Sodium 139 mmol/L (136-145); Total Protein,Serum 6.8 g/dl (6.3-8.2); Triglycerides 142 mg/dl (30-150); VLDL Cholesterol 28 mg/dL (0-40)
[2024-10-12 18:37] LABS: Hemoglobin A1C 5.1 % (4.0-6.0)
[2024-10-12 18:45] LABS: 25-OH Vitamin D, Total 46.1 ng/mL (30-100)
[2024-10-12 18:58] LABS: Free T4 (Free Thyroxine) 1.63 ng/dl (0.78-2.19)
[2024-10-12 19:27] LABS: Vitamin B12 839 pg/mL (239-931)
== END 2024-10-12 23:59 | disposition home or self-care (01) ==
LOC: LAB.DROPOF 10-13 09:11
PROVIDERS: PCP Nurse Practitioner; Visit Provider Nurse Practitioner
DX: I10 Essential (primary) hypertension (principal); E78.5 Hyperlipidemia, unspecified; E03.9 Hypothyroidism, unspecified; F41.8 Other specified anxiety disorders; K21.9 Gastro-esophageal reflux disease without esophagitis; J30.9 Allergic rhinitis, unspecified; E55.9 Vitamin D deficiency, unspecified; G47.33 Obstructive sleep apnea (adult) (pediatric); R73.01 Impaired fasting glucose; E66.9 Obesity, unspecified
CPT/HCPCS: 80053; 80061; 82043; 82306; 82570; 82607; 83036; 84439; 84443; 85025

== ENCOUNTER 2025-07-04 14:30 | Outpatient (RCR) | payer MEDICARE, SELFPAY ==
--- NOTE | 2025-07-04 15:42 | HMH.PTOPEV ---
PT Evaluation Rehab PT Outpatient Evaluation Start: 07/04/25 14:46 Freq: Status: Active Protocol: Document 07/04/25 14:49 MILDRED (Rec: 07/04/25 15:42 MILDRED [id number]) E-signed By Cora Elias, PT Outpatient Therapy Subjective History Subjective History P tis a 69 y/o female referred to PT for lumbago with sciatica, left-side. Pt reports onset of low back pain a little over a month ago without known trauma or injury. Pt denies having imaging of her lumbar spine. Pt reports she went to the doctor and was given 2 injections, oral steroids and Naproxen and has since had 3 massages which has assisted with symptoms. Pt reports she has not had any pain until last night when she experienced left posterior hip and leg pain that woke her up in the night, states she did mop the kitchen yesterday. Pt reports current symptoms of left-sided low back pain and intermittent bilateral radiating pain. Pt describes left leg pain as sharp that extends to the knee and right lateral leg numbness that extends to her pinky toe. Pt denies b/b dysfunction. Pt denies leg weakness or altered balance since onset. Pt reports pain is aggravated by prolonged standing, walking, and transferring up/down from a chair or the car. Medical History: Positive INÉS (antinuclear antibody), Varicose veins of right lower extremity, Polyarthralgia , IFG (impaired fasting glucose), Obesity, Lipoma of neck, ABIGAIL (obstructive sleep apnea), Hyperglycemia, Vitamin D deficiency, Anemia, Allergic rhinitis, GERD ( gastroesophageal reflux disease), Depression with anxiety, Postmenopausal, Acquired hypothyroidism, Hyperuricemia, Hyperlipidemia, Essential hypertension New diagnosis of No cancer in past 12 months? Chief Complaint Pain Symptom Type Sharp Symptoms Relieved By Prescription Meds Current Functional Housework,Standing,Squatting,Walking Limitations Symptom Description Intermittent Level of pain today 0 (0-10) Pain scale - at its 0 best (0-10) Pain scale - at its 6 worst (0-10) Lumbopelvic Eval Posture Lumbar Spine Posture Decreased Lordosis Standing Position Assistive device Assistive Devices None / NA Gait Observation General Gait Pattern No Deviations/Normal Observation Palapation tenderness bilateral lumbar spinal Yes tenderness buttock tenderness Yes: L glute med/min, piriformis mm Lumbar/Sacral Tenderness Palpation Findings Lumbar/Sacral 1-2/4 TTP Palpation Overall Comment Accessory Movement L-spine Vertebrae Central P/A D Lo Accessory Movements that Elicit Symptoms L4 bilateral L5 bilateral Range of Motion Lumbar Spine Active 100 Flexion Range of Motion (degrees) Lumbar Spine Active 20 Extension Range of Motion (degrees) Left Lumbar Spine 10 Lateral Flexion Active Range of Motion (degrees) Right Lumbar Spine 10 Lateral Flexion Active Range of Motion (degrees) Manual Muscle Test Right Knee Extension 5 Normal Strength Grade Knee Flexion 5 Normal Strength Grade Hip Flexion Strength 4 Good Grade Hip Abduction 4 Good Strength Grade Hip Adduction 4 Good Strength Grade Hip External 4 Good Rotation Strength Grade Hip Extension 4 Good Strength Grade Ankle Dorsiflexion 5 Normal Strength Grade Left Knee Extension 5 Normal Strength Grade Knee Flexion 5 Normal Strength Grade Hip Flexion Strength 4 Good Grade Hip Abduction 4 Good Strength Grade Hip Adduction 4 Good Strength Grade Hip External 4 Good Rotation Strength Grade Ankle Dorsiflexion 5 Normal Strength Grade DTR Rt Patellar 2+ Lt Patellar 2+ Altered Sensation Bilateral Comment equal and intact to light touch sensation bilaterally Special Tests Hip Salvador (MIGUEL) Negative Left,Negative Right Test Hip Piriformis Test Negative Left,Negative Right Sciatic Nerve Negative Left,Negative Right Tension Test Unilateral Straight Negative Right,Positive Left Leg Raise (Lasegue) Test Oswestry Index Section 1 Pain Intensity The pain comes and goes and is moderate Section 2 Personal Care ( change my way of washing or dressing in order to avoid Washing,Dresing) pain Section 3 Lifting lifting heavy weights off the floor, but I can manage light to medium Section 4 Walking I cannot walk more than 1/4 mile without increasing pain Section 5 Sitting I can sit in my favorite chair for as long as I like Section 6 Standing I cannot stand more than 10 minutes without increasing pain Section 7 Sleeping Because of my pain, my normal night's sleep is less than 4 hours Section 8 Social Life My social life is normal but increases the degree of pain Section 9 Traveling I get no pain when traveling Section 10 Changing Degreee of My pain fluctuates, but overall is definitely getting Pain better Score and Risk Level Oswestry Score 20 Oswestry Risk Level Moderate Disability Miscellaneous Dx PT Eval Objective Objective Core strength: 4-/5 Outpatient Therapy Assessment Impairments Problems/ Palpation Tenderness,Impaired Strength,Impaired Impairmments Transfers,Impaired Walking,Impaired Standing,Impaired Household Care,Subjective C/O Pain,Impaired Self Care/ Self Management Prognosis Rehab Potential Good Clinical Impression Consistent with Yes Diagnosis PT Patient Goals PT Patient Goals PT Short Term 2 weeks: Patient Goals 1. Verbalize compliance with HEP to assist with progress. 2. Improve tenderness to palpation of lumbar motion segments and L gluteal mm to 0-1/4 to assist with pain. PT Intermediate Patient 4 weeks: Goals 1. Improve core/hip strength to 4-4+/5 grossly to assist with function. 2. Improve ROSELIA score to 15 or less to improve overall QOL/function. 3. Improve pain at worst to 3/10 or less on VAS to improve overall QOL/function. 4. Perform transfers without pain to assist with function. Outpatient Therapy Plan of Care Treatment Plan May Include Therapeutic Exercise Yes Including Home Exercise Program Manual Therapy Yes Techniques Neuromuscular Re- Yes education Therapeutic Yes Activities to Return to Previous Functional/Work Level ADL/Self Care Yes Education Mechanical Traction Yes Dry Needling Yes Thermal Modalities Yes Electrical Yes Stimulation Ultrasound/ Yes Phonophoresis Iontophoresis Yes Massage Yes Group Therapy for Yes Medicare Eval/Re-Eval Yes Frequency Times per week 2 Duration Number of Weeks 4 Addendums This patient is a No candidate for social or vocational rehab ? Patient/Guardian Yes verbally acknowledges understanding of treatment program and consents to further treatment? Patient/Guardian Yes verbally acknowledges understanding of diagnosis, prognosis and goals for treatment? Eval Complexity PT Charges 60865 - Moderate Complexity Shoulder/Elbow Eval Shoulder Objective Measurements Elbow Objective Measurements PHYSICIAN CERTIFICATION: I certify the specified therapy services for Raiza Lew are required, authorized, and reviewed every 30 days.
== END 2025-07-04 23:59 | disposition home or self-care (01) ==
LOC: PT 14:30
PROVIDERS: PCP Nurse Practitioner; Visit Provider Nurse Practitioner Family
DX: M54.40 Lumbago with sciatica, unspecified side (principal)
CPT/HCPCS: 97162

== ENCOUNTER 2025-07-24 16:37 | Outpatient (CLI) | payer MEDICARE, SELFPAY ==
[2025-07-24 16:10] LABS: Hematocrit 39.6 % (37.0-47.0); Hemoglobin 13.1 g/dL (12.2-16.2); Immature Granulocytes % 0.2 %; Mean Corpuscular HGB Conc 33.1 g/dL (31.8-35.4); Mean Corpuscular Hemoglobin 30.0 pg (27.0-31.2); Mean Corpuscular Volume 90.8 fl (81-99); Nucleated Red Blood Cells % 0 %; Platelet Count 119 K/mm3 (142-424); Red Blood Count 4.36 M/mm3 (4.20-5.40); Red Cell Distribution Width-SD 42.0 fL; White Blood Count 4.4 K/mm3 (4.8-10.8)
[2025-07-24 18:34] LABS: Alanine Aminotransferase 28 U/L (12-78); Albumin Level 4.3 g/dl (3.5-5.0); Albumin/Globulin Ratio 1.5 (1.1-1.8); Alkaline Phosphatase 73 U/L (38-126); Anion Gap 11.8 mEq/L (5-15); Aspartate Amino Transferase 31 U/L (14-36); Bilirubin,Total 0.5 mg/dl (0.2-1.3); Blood Urea Nitrogen 16 mg/dl (7-17); Calcium 9.7 mg/dl (8.4-10.2); Carbon Dioxide 29 mmol/L (22.0-30.0); Chloride 100 mmol/L (98-107); Cholesterol 167 mg/dl (140-200); Creatinine,Serum 0.70 mg/dl (0.52-1.04); Estimated Glomerular Filt Rate 83 ml/min (>60); GFR (African American) 101 ML/MIN (>60); Globulin 2.9 g/dL (1.3-3.2); Glucose 95 mg/dl (74-100); HDL Cholesterol 59 mg/dl (40-60); Iron 138 ug/dL (37-170); Potassium 4.8 mmoL/L (3.5-5.1); Sodium 136 mmol/L (136-145); Total Protein,Serum 7.2 g/dl (6.3-8.2); Triglycerides 181 mg/dl (30-150)
[2025-07-24 18:53] LABS: Total Iron Binding Capacity 335 ug/dL (265-497)
[2025-07-24 18:59] LABS: Free T4 (Free Thyroxine) 1.26 ng/dl (0.78-2.19)
[2025-07-24 19:03] LABS: 25-OH Vitamin D, Total 52.9 ng/mL (30-100)
[2025-07-24 19:09] LABS: Thyroid Stimulating Hormone 2.77 uIU/mL (0.465-4.68)
[2025-07-24 19:29] LABS: Vitamin B12 830 pg/mL (239-931)
[2025-07-24 22:01] LABS: Hepatitis C Ab Qual. W/ RFX NEGATIVE (Negative)
[2025-07-24 22:43] LABS: Hemoglobin A1C 5.1 % (4.0-6.0)
--- OUTSIDE RECORDS SUMMARY | 2025-07-25 16:40 | XMS_ITS | Encounter Summary ---
Author Organization [place] [address] Care Team Providers Care Title [employer]inder[employer] Teacher Name Role Phone Eron Montalvo MD Primary Care Provider [phone] Eron Montalvo MD Primary Care Provider [phone] Encounter Details Date Type Department Care Team (Late st Contact Info) Description 12/08/2014 Orders Only [facility] [address] [facility] [address] [place] [id number] Shin yIer MD [address] [place] [address] Social History Tobacco Use Types Packs/Day Years Used Date Smoking Tobacco: Never Smokeless Tobacco: Never Alcohol Use Standard Drinks/Week Comments Yes 0 (1 standard drink = 0.6 oz pur e alcohol) Occ Sexually Active Control Partners Comments Yes Surgical Male Tubal Comments No Sex and Gender Information Value Date Recorded Sex Assigned at Not on file Legal Sex Female 2:40 PM EDT Gender Identity Not on file Sexual Orientation Not on file Occupation Industry Job Start Date Job End Date Not on file Not on file Not on file Not on file documented as of this encounter Plan of Treatment Upcoming Encounters Date Type Department Care Team (Late st Contact Info) Description 09/15/2025 11:15 AM EST Appointment [facility] [address] [place] [address] Eron Montalvo MD [address] [place] [id number] documented as of this encounter Procedures Procedure Name Priority Date/Time Associated Diagnosis Comments [facility] COLONOSCOPY Routine 12/08/2014 8:45 AM EDT documented in this encounter Results * [facility] COLONOSCOPY (12/08/2014 8:45 AM EDT) 12/08/2014 8:45 AM EDT Impressions [facility] - 12/08/2014 8:41 AM EDT Diverticulum in the ascending colon. Melanosis in the whole colon. Plan: Screening Colonoscopy in 10 years. This section is an excerpt of the full report. us Shin Iyer MD GI PROCEDURE ORDERABLES Fin al Result Performing Organization Address City/State/[facility] Co de Phone Number [facility] [address] [place] [address] documented in this encounter Visit Diagnoses Not on filedocumented in this encounter Additional Health Concerns Infection Onset Date Last Indicated Resolved Time R/O COVID-19 08/22/2021 08/22/2021 08/22/2021 6:40 AM EST COVID-19 08/22/2021 08/22/2021 09/21/2021 10:1 2 PM EST documented as of this encounter Care Teams Title [employer] Teacher Relationship Specialty Start Date End Date Eron Montalvo MD [address] [place] [id number] PCP - General 02/18/11 03/13/15 Eron Montalvo MD [address] [address] [place] [id number] PCP - General Family Medicine 03/14/15 documented as of this encounter
--- OUTSIDE RECORDS SUMMARY | 2025-07-25 16:40 | XMS_ITS | Clinical Summary ---
Author Organization [facility] Address [address] [place] [address] Phone Care Team Providers Care Thermal Surfacing Machine Operator Name Role Phone Eron Montalvo MD Primary Care Provider [phone] [phone] Allergies No known active allergies Medications CETIRIZINE HCL (ZYRTEC ORAL) Take 10 mg by mouth daily. Active metoprolol succinate (TOPROL-XL) 25 mg Oral Tablet Sustained Release 24 hr Take 25 mg by mouth nightly. 4 7 Active allopurinol (ZYLOPRIM) 300 mg Oral Tablet 7 Active fluticasone (FLONASE) 50 mcg/actuation Nasl [place], Suspension USE 1 SPRAY ONCE A DAY IN EACH NOSTRIL 2 7 Active GLUCOSAMINE/MSM/C HONDROIT SULF (GLUCOSAMINE 0INA-[id number] T ORAL) Take by mouth 2 times daily. Active sertraline (ZOLOFT) 100 mg Oral Tablet Take 200 mg by mouth daily. Active valsartan-hydroch lorothiazide (DIOVAN-HCT) 160-12.5 mg Oral Tablet Take 1 Tab by mouth daily. Active LEVOthyroxine (SYNTHROID) 75 mcg Oral Tablet Take 75 mcg by mouth daily. 4 9 Active omeprazole (PRILOSEC) 40 mg Oral Capsule, Delayed Release(E.C.) Take 40 mg by mouth nightly. Active Cholecalciferol, Vitamin D3, 125 mcg (5,000 unit) Oral Tablet Take by mouth. Act argenis ARIPiprazole (ABILIFY) 10 mg Oral Tablet 10 mg. 2 Active famotidine (PEPCID) 40 mg Oral Tablet nightly. 3 Active metFORMIN (GLUCOPHAGE XR) 500 mg Oral ER 24 hr tablet TAKE 1 TABLET ORALLY ONCE DAILY 3 Active rosuvastatin (CRESTOR) 20 mg Oral Tablet Take 20 mg by mouth daily. 3 Active WEGOVY 0.25 mg/0.5 mL SubQ Pen Injector 3 Active calcium carbonate (CALCIUM 600 ORAL) Take 600 mg by mouth daily. Active FLINTSTONES MULTIVITAMIN ORAL Take 2 Tablets by mouth daily. Active estradioL (ESTRACE) 0.01 % (0.1 mg/gram) Vagl CreamIndications: Atrophic vaginitis . 5 gms twice a week 1 Each 4 4 Active clobetasoL (TEMOVATE) 0.05 % Top CreamIndications: Lichen sclerosus,Atrophi c vaginitis APPLY TOPICALLY TWO TIMES A WEEK ON THURSDAY AND THURSDAY. 60 g 3 4 Active Active Problems Problem Noted Date Diagnosed Date Allergic rhinitis 10/21/2023 Anemia 10/21/2023 Hyperlipidemia 10/21/2023 Hyperuricemia 10/21/2023 ABIGAIL (obstructive sleep apnea) 10/21/2023 Vitamin D deficiency 10/21/2023 Fatigue associated with anemia 10/21/2023 Postmenopausal bleeding 10/01/2023 Endometrial mass 10/01/2023 COVID-19 08/22/2021 Personal history of colonic polyps 05/21/2021 Overview (05/21/2021): Added automatically from request for surgery [id number] Abnormal stress ECG with treadmill 08/09/2019 Chest discomfort 12/02/2017 Atrophic vaginitis 05/19/2013 Lichen sclerosus 01/08/2012 Menorrhagia 06/03/2011 Hypothyroidism 04/28/2011 Menopausal hot flushes 03/27/2010 Mass of left breast 01/14/2010 Family history of malignant neoplasm of breast 0 04/02/2006 Hypertension Stomach disorder Arthritis Depression Hot flashes, menopausal Encounters Date Type Department Care Team Description 07/13/2025 Refill SEP [facility] [address] [facility] [address] [place] [address] Aparna Nelson DO Medication Refill from Last 3 Months Surgical History Surgery Date Site/Laterality Comments TUBAL LIGATION TONSILLECTOMY AND ADENOIDECTOMY MOUTH SURGERY dental implants. just had bone graft february 2011 to prepare for another dental implant. HYSTEROSCOPY DILATION AND CURETTAGE OF UTERUS COLONOSCOPY UPPER GASTROINTESTINAL ENDOSCOPY ESOPHAGUS SURGERY Esophagus was stretched. At last endoscopy COLONOSCOPY 06/05/2021 N/A Colonoscopy with polypectomies via forceps and cold snare; Surgeon: Davon Lopez MD; Location: [facility] END[facility]; Service: Endoscopy NECK SURGERY 02/05/2023 N/A Local/excision biopsy poserior neck mass w/complex closure/Dr. John Torres HYSTEROSCOPY 10/08/2023 N/A DILATION AND CURETTAGE HYSTEROSCOPY, POLYPECTOMY; Surgeon: Aparna Nelson DO; Location: [facility] MAIN OR; Service: Gynecology Medical History Medical History Date Comments Hyperlipidemia Hypertension Heartburn Depression Irritable bowel syndrome Anemia transfusion in 09/2018 Pt denies any further issues 10/07 kw GERD (gastroesophageal reflux disease) Sleep apnea cpap- settings u nknown Blood circulation, collateral DV T-right leg Hiatal hernia Osteoporosis Thyroid disease Encounter for blood transfusion Motion sickness Family History Medical History Relation Name Comments Diabetes Brother Heart Disease Brother High Blood Pressure Brother Hypertension Brother Diabetes Father Heart Disease Father High Blood Pressure Father Hypertension Father Kidney Disease Father Varicose Veins Father Breast Cancer Maternal Aunt Cancer Maternal Aunt Ksenia cate d isease Allergies Mother Lore Fouzia food Breast Cancer Mother Lore Fouzia Cancer Mother Lore Fouzia Colon Polyps Mother Lore Fouzia Diabetes Mother Lore Fouzia Heart Disease Mother Lore Fouzia High Blood Pressure Mother Lore Fouzia Hypertension Mother Lore Fouzia Irritable Bowel Syndrome Mother Lore Masseng bruna Breast Cancer Paternal Aunt 1 Varicose Veins Paternal Aunt 1 Breast Cancer Paternal Aunt 2 Varicose Veins Paternal Grandmother Bleeding Prob Neg Hx Hearing Loss Neg Hx Migraines Neg Hx Thyroid Disease Neg Hx Relation Name Status Comments Brother Alive Father Maternal Aunt Mother Lore Fragoso Alive Paternal Aunt 1 Paternal Aunt 2 Alive Paternal Grandmother Social History Tobacco Use Types Packs/Day Years Used Date Smoking Tobacco: Never Smokeless Tobacco: Never Tobacco Cessation:Counseling Given: Not Answered Alcohol Use Standard Drinks/Week Comments Yes 4 (1 standard drink = 0.6 oz pur e alcohol) Occ - once a week AUDIT-C Answer Date Recorded Q1: How often do you have a drink containing alc ohol? 2-4 times a month 11/06/2020 Average Number of Drinks Not on file 021 Frequency of Binge Drinking Not on file 10/16 Sexually Active Control Partners Comments Yes Surgical, Post-menopausal Male Tu bal Comments No Sex and Gender Information Value Date Recorded Sex Assigned at Not on file Legal Sex Female 2:40 PM EDT Gender Identity Not on file Sexual Orientation Not on file Occupation Industry Job Start Date Job End Date Not on file Not on file Not on file Not on file Obstetrics History Para Term AB IAB SAB Ectopic Multiple Livin g Live Births 3 2 2 0 1 0 1 0 0 2 2 Date Outcome GA Total Labor Labor/2nd/3rd Weight Sex Type Anes PTL Dasia A1 A5 Name Clin SAB 02/07 Term 6 lb 13 oz (3.09 kg) M Vag-S pont Spinal Living Complications:None 03/23 Term 7 lb 3 oz (3.26 kg) M Vag-S pont Spinal Living Complications:None Last Filed Vital Signs Vital Sign Reading Time Taken Comments Blood Pressure 124/62 12/29/2023 1:10 PM EDT Pulse 86 10/21/2023 1:37 PM EST Temperature 36.6 C (97.9 F) 10/21/2023 11:34 AM EST Respiratory Rate 14 10/08/2023 10:42 AM EST Oxygen Saturation 98% 10/21/2023 1:37 PM EST Inhaled Oxygen Concentration - - Weight 101.6 kg (224 lb) 12/29/2023 1:10 PM EDT Height 160 cm (5' 3 ) 12/29/2023 1:10 PM EDT Body Mass Index 39.68 12/29/2023 1:10 PM EDT Plan of Treatment Upcoming Encounters Date Type Department Care Team (Late st Contact Info) Description 09/15/2025 11:15 AM EST Appointment [facility] [address] [place] [address] Eron Montalvo MD [address] [facility] [address] [place] [address] Health Maintenance Due Date Last Done Comments Wellness Exam Medicare 1958 Hepatitis C Screening 1975 Cologuard 2002 FIT 2002 Sigmoidoscopy 2002 Virtual Colonography 2002 Pneumococcal Vaccine 50+ (1 of 1 - PCV) 2007 COVID-19 Vaccine ( - 2024- season) 2025 Influenza Vaccine (#1) 2025 07/17/2019 Colon Cancer Screening 06/05/2026 Colonoscopy 06/05/2026 06/05/2021, 12/08/2014 Breast Cancer Screening 08/22/2026 08/22/20 24, 08/18/2023, 07/26/2022, Additional history exists DTaP/TDaP/Td (2 - Td or Tdap) 01/14/2029 01/14/2019, 11/18/1996 Hepatitis B Vaccine Completed 07/11/1998, 01/09/1998, 12/08/1997 Zoster Completed 11/26/2020, 09/04/2020 Bone Density Screening Completed 03/11/2023, 2018 Meningococcal B Vaccine Aged Out No l onger eligible based on patient's age to complete this topic Medical Devices Implanted Type Area Food Aide Device Identifier Shelf Expiration Date Model / Serial / Lot Dental Implants-Upper And Lower Procedures Procedure Name Priority Date/Time Associated Diagnosis Comments MM MAMMO DIGITAL SELIN SCREEN BILAT Routine 08/22/2024 10:18 AM EST Encounter for screening mammogram for malignant neoplasm of breast DX BONE DENSITY AXIAL SKELETON Routine 03/11/2023 11:10 AM EDT Postmenopausal bone loss GMED COLONOSCOPY Routine 06/05/2021 1:00 PM EDT from Last 3 Months or Most Recently Relevant to Health Maintenance Results * MM MAMMO DIGITAL SELIN SCREEN BILAT (08/22/2024 10:18 AM EST) Anatomical Region Laterality Modality Breast Bilateral Mammography 08/22/2024 10:1 8 AM EST Impressions 08/22/2024 10:30 AM EST Negative ([id number]) RECOMMENDATION: Routine Screening Mammogram in 1 Year Bilateral No additional recommendation No additional laterality COMMENTS: Narrative 08/22/2024 10:30 AM EST EXAM: MM MAMMO DIGITAL SELIN SCREEN BILAT EXAM DATE: 08/22/2024 10:18 AM INDICATION: Z12.31-Encounter for screening mammogram for malignant neoplasm of [id number] COMPARISON STUDIES: Compared with prior studies the most recent being 08/18/2023 MM MAMMO DIGITAL SELIN SCREEN BILAT at [facility] 07/26/2022 MM MAMMO DIGITAL SELIN SCREEN BILAT at [facility] 07/05/2021 MM MAMMO DIGITAL SELIN SCREEN BILAT at [facility] TISSUE DENSITY: There are scattered areas of fibroglandular density. FINDINGS: No mammographic evidence of malignancy. Procedure Note Yair Darby MD - 08/22/2024 EXAM: MM MAMMO DIGITAL SELIN SCREEN BILAT EXAM DATE: 08/22/2024 10:18 AM INDICATION: Z12.31-Encounter for screening mammogram for malignantneoplasm of [id number]-CM COMPARISON STUDIES: Compared with prior studies the most recent being 08/18/2023 MM MAMMO DIGITAL SELIN SCREEN BILAT at [facility] 07/26/2022 MM MAMMO DIGITAL SELIN SCREEN BILAT at [facility] 07/05/2021 MM MAMMO DIGITAL SELIN SCREEN BILAT at [facility] TISSUE DENSITY: There are scattered areas of fibroglandular density. FINDINGS: No mammographic evidence of malignancy. IMPRESSION: Negative ([id number]) RECOMMENDATION: Routine Screening Mammogram in 1 Year Bilateral No additional recommendation No additional laterality COMMENTS: Aparna Torrezngelis IMG MAMMOGRAPHY ORDERAB LES Final Result * DX BONE DENSITY AXIAL SKELETON (03/11/2023 11:10 AM EDT) Anatomical Region Laterality Modality Dexa Scan 03/11/2023 Narrative 03/11/2023 2:23 PM EDT Indication: The patient is being monitored while on treatment and requires a bone density assessment. Study was performed on Dobleas 5. Bone Density: Region BMD T-score Z-score AP Spine (L1-L4) 0.925 -1.1 0.7 Femoral Neck (Left) 0.646 -1.8 -0.3 Total Hip (Left) 0.887 -0.4 0.8 World Health Organization criteria for BMD interpretation classify patients as: Normal (T-score at or above -1.0), Low Bone Density (T-score between -1.0 and -2.5), or Osteoporotic (T-score at or below -2.5). T Scores are reported in Postmenopausal women and in men age 50 and older. Z-scores are reported in females prior to menopause and in males younger than age 50. 10-year Fracture Risk(1): Major Osteoporotic Fracture 8.8% Hip Fracture 1.1% Reported Risk Factors: [place] (), Neck BMD=0.646, BMI=40.7, secondary osteoporosis (1) FRAX(R) Version 3.08. Fracture probability calculated for an untreated patient. Fracture probability may be lower if the patient has received treatment. Previous Exams: Region Date Age BMD T-score BMD Change AP Spine(L1-L4) 03/11/2023 67 0.925 -1.1 -7.9%* 11/20/2018 63 1.004 -0.4 Total Hip(Left) 03/11/2023 67 0.887 -0.4 -4.7%* 11/20/2018 63 0.932 -0.1 *Denotes significance at 95% confidence level, LSC for AP Spine = 0.032g/cm2, LSC for Total Hip = 0.024 g/cm2, LSC for Distal 1/3 Radius = 0.026 g/cm2, site specific LSC for AP Spine = 0.032 g/cm2, site specific LSC for Total Hip = 0.022 g/cm2 BMD is shown in g/cm2 and BMD Change indicates change vs previous BMD Clinical Information Provided by Patient: Has secondary osteoporosis Has used or is currently using the following medications: Vitamin D, Thyroid medication Has had or currently has the following medical conditions: Back pain, Hip pain, Vitamin D Insufficiency, Depression Patient maximum height was 64 Menopause Age: 52 Patient is post menopausal Interpretation: Bone mineral density is in the low bone density range. A minimum of two years may be required between bone density studies due to inherent testing precision limitations. Intervals between BMD testing should be determined according to each patient's clinical status: typically one year after initiation or change of therapy is appropriate, with longer intervals once therapeutic effect is established. The spine bone mineral density is significantly decreased from the last exam. The left hip bone mineral density is significantly decreased since the last exam. Patient's FRAX score indicates that the patient is at no increased risk for a fragility fracture in the next 10 years. Patient's FRAX score is included in the body of this report. The spine portion of the study is limited by patient body habitus with elevated TH value. Reported by: Misa Bell PA-C, [facility], CCD on 03/11/2023 11:23:00 AM. Nesha Lin CNM IMG DEXA ORDERABLES Fin al Result * GMED COLONOSCOPY (06/05/2021 1:00 PM EDT) 06/05/2021 1:00 PM EDT Impressions [facility] - 06/05/2021 1:33 PM EDT Polyp (2 mm) in the ascending colon. (Biopsy). Polyp (2 mm) in the transverse colon. (Biopsy). Internal and external hemorrhoids. Polyp (5 mm) in the descending colon. (Polypectomy). Plan: - Await pathology of the removed polyps - A total of 3 polyps removed - Likely repeat colonoscopy in 3 years This section is an excerpt of the full report. us Davon Lopez MD GI PROCEDURE ORDERABLES Holly lindsay Result Performing Organization Address City/State/[facility] Co de Phone Number [facility] [address] [place] [phone] from Last 3 Months or Most Recently Relevant to Health Maintenance [place] [address] [place] [address] MEDICARE PPO MR [facility] MEDICARE PPO MR [facility] MEDICARE PPO MR Care Teams Thermal Surfacing Machine Operator Relationship Specialty Start Date End Date Eron Montalvo MD [address] [facility] [address] [place] [address] PCP - General Family Medicine 03/14/15
--- OUTSIDE RECORDS SUMMARY | 2025-07-25 16:40 | XMS_ITS | Encounter Summary ---
Author Organization [place] [address] Care Team Providers Care Regrinder Name Role Phone Eron Montalvo MD Primary Care Provider [phone] Encounter Details Date Type Department Care Team (Late Contact Info) Description 10/25/2018 Orders Only SEP Gastro [facility] [address] [facility] [address] [place] [id number] Shin Iyer MD [address] [place] [address] Social History Tobacco Use Types Packs/Day Years Used Date Smoking Tobacco: Never Smokeless Tobacco: Never Alcohol Use Standard Drinks/Week Comments Yes 0 (1 standard drink = 0.6 oz pur e alcohol) Occ - once a week Sexually Active Control Partners Comments Yes Post-menopausal, Surgical Male Tu bal Comments No Sex and [...] Encounters Date Type Department Care Team (Late Contact Info) Description 09/15/2025 11:15 AM EST Appointment [facility] [address] [place] [address] Eron Montalvo MD [address] [place] [address] [place] [phone] documented as of this encounter Procedures Procedure Name Priority Date/Time Associated Diagnosis Comments GMED EGD Routine 10/25/2018 7:20 AM EST documented in this encounter Results * GMED EGD (10/25/2018 7:20 AM EST) 10/25/2018 7:20 AM EST Impressions [facility] - 10/25/2018 7:33 AM EST Hiatal Hernia. Stricture in the gastroesophageal junction. (Dilation). Plan: Follow-up as needed This section is an excerpt of the full report. us Shin Iyer MD GI PROCEDURE ORDERABLES Fin al Result [facility] [address] [place] [phone] documented in this encounter Visit Diagnoses Not on filedocumented in this encounter Additional Health Concerns Infection Onset Date Last Indicated Resolved Time R/O COVID-19 08/22/2021 08/22/2021 08/22/2021 6:40 AM EST COVID-19 08/22/2021 08/22/2021 09/21/2021 10:1 2 PM EST documented as of this encounter Care Teams Regrinder Relationship Specialty Start Date End Date Eron Montalvo MD [facility] [place] [address] [place] [address] PCP - General Family Medicine 03/14/15 documented as of this encounter
--- OUTSIDE RECORDS SUMMARY | 2025-07-25 16:40 | XMS_ITS | Encounter Summary ---
Author Organization [place] [address] Care Team Providers Care Cyber Transport Systems Specialist Name Role Phone Eron Montalvo MD Primary Care Provider [phone] Reason for Visit * Reason Comments Medication Refill Encounter Details Date Type Department Care Team (Late st Contact Info) Description 07/13/2025 Refill [facility] [address] [place] [address] [address] [place] [address] Aparna Nelson, DO [address] [facility] [address] [address] [place] [address] Medication Refill Social History Tobacco Use Types Packs/Day Years Used Date Smoking Tobacco: Never Smokeless Tobacco: Never Alcohol Use Standard Drinks/Week Comments Yes 4 [...] Mammography [address] [place] [id number] Eron Montalvo MD [address] [place] [address] [address] [place] [address] documented as of this encounter Visit Diagnoses Diagnosis Atrophic vaginitis Postmenopausal atrophic vaginitis Encounter for screening mammogram for malignant neoplasm of breast Other screening mammogram documented in this encounter Additional Health Concerns Assessment Noted Time A fall risk assessment has been complete d for the patient 07/24/2023 12:55 PM EST documented as of this encounter Care Teams Cyber Transport Systems Specialist Relationship Specialty Start Date End Date Eron Montalvo MD [address] [place] [address] [address] [place] [phone] PCP - General Family Medicine 03/14/15 documented as of this encounter
--- OUTSIDE RECORDS SUMMARY | 2025-07-25 16:40 | XMS_ITS | Encounter Summary ---
Author Organization [place] [address] Care Team Providers Care Raw Stock Machine Loader Name Role Phone Eron Montalvo MD Primary Care Provider [phone] Eron Montalvo MD Primary Care Provider [phone] Encounter Details Date Type Department Care Team (Late st Contact Info) Description 12/08/2014 Orders Only SEP Gastro [facility] [address] [facility] [address] [place] [phone] Shin Iyer MD [address] [place] [address] Social History Tobacco Use Types Packs/Day Years [...] [facility] [address] [place] [address] Eron Montalvo MD [address] [place] [address] [place] [phone] documented as of this encounter Procedures Procedure Name Priority Date/Time Associated Diagnosis Comments GMED EGD Routine 12/08/2014 8:30 AM EDT documented in this encounter Results * GMED EGD (12/08/2014 8:30 AM EDT) 12/08/2014 8:30 AM EDT Impressions [facility] - 12/08/2014 8:39 AM EDT Stricture in the gastroesophageal junction. (Dilation). Hiatal Hernia. Plan: Follow-up as needed This section is an excerpt of the full report. us Shin Iyer MD GI PROCEDURE ORDERABLES Fin al Result Performing Organization Address City/State/[facility] Co de Phone Number [facility] [address] [place] [address] documented in this encounter Visit Diagnoses Not on filedocumented in this encounter Additional Health Concerns Infection Onset Date Last Indicated Resolved Time R/O COVID-19 08/22/2021 08/22/2021 08/22/2021 6:40 AM EST COVID-19 08/22/2021 08/22/2021 09/21/2021 10:1 2 PM EST documented as of this encounter Care Teams Raw Stock Machine Loader Relationship Specialty Start Date End Date Eron Montalvo MD [facility] [place] [address] [place] [phone] PCP - General 02/18/11 03/13/15 Eorn Montalvo MD [facility] [place] [address] [place] [phone] PCP - General Family Medicine 03/14/15 documented as of this encounter
== END 2025-07-24 23:59 | disposition home or self-care (01) ==
LOC: LAB.DROPOF 07-25 16:37
PROVIDERS: PCP Nurse Practitioner; Visit Provider Nurse Practitioner
DX: D64.9 Anemia, unspecified (principal); Z11.59 Encounter for screening for other viral diseases; R73.9 Hyperglycemia, unspecified; E78.5 Hyperlipidemia, unspecified; I10 Essential (primary) hypertension; E03.9 Hypothyroidism, unspecified; E55.9 Vitamin D deficiency, unspecified
CPT/HCPCS: 80053; 80061; 82043; 82306; 82570; 82607; 83036; 83540; 83550; 84439; 84443; 85025; 86803; 87389

== ENCOUNTER 2025-08-08 11:00 | Outpatient (RCR) | payer MEDICARE, SELFPAY ==
--- NOTE | 2025-08-08 11:14 | HMH.RHREAS ---
Rehab Reassessment Rehab OP Re-assessment Start: 07/19/25 11:14 Freq: Status: Active Protocol: Document 08/08/25 10:51 MILDRED (Rec: 08/08/25 11:13 MILDRED [id number]) E-signed By Cora Elias, PT Oswestry Index Section 1 Pain Intensity The pain comes and goes and is very mild Section 2 Personal Care ( change my way of washing or dressing in order to avoid Washing,Dresing) pain Section 3 Lifting I can lift heavy weights, but it gives me extra pain Section 4 Walking I cannot walk more than one mile wihtout increasing pain Section 5 Sitting Pain prevents me from sitting for more than one hour Section 6 Standing I have some pain on standing, but it does not increase with time Section 7 Sleeping Because of my pain, my normal night's sleep is less than 6 hours sleep Section 8 Social Life Pain has no significant effect on my social life apart from limiting Section 9 Traveling I get no pain when traveling Section 10 Changing Degreee of My pain is getting better Pain Score and Risk Level Oswestry Score 10 Oswestry Risk Level Mild Disability Rehab Re-assessment Subjective Subjective Pt reports she feels 90% improved since starting PT. Pt reports she has not experienced back pain recently but has been having intermittent left lateral leg pain exacerbated by laying on her left side and with prolonged standing. Pt reports otherwise she is able to perform all functional activities and transfers well without pain or difficulty. Pt reports compliance with HEP. Objective Objective Notes Palpation: 0/4 TTP of left gluteal mm or lumbar spine Lumbar AROM: flex 100, ext 20, LF 10 BLE MMT: 4+/5 grossly Assessment Assessment Notes Pt has attended 3 PT treatment sessions along with HEP with good tolerance. Pt demonstrated improved ROSELIA score , tenderness to palpation, lumbar AROM, strength and functional activity tolerance compared to the initial evaluation. Overall, the pt has met most PT goals and is appropriate to discharge to independent [facility] at this time. PT Patient Goals PT Short Term 2 weeks: Patient Goals 1. Verbalize compliance with HEP to assist with progress. -MET 2. Improve tenderness to palpation of lumbar motion segments and L gluteal mm to 0-1/4 to assist with pain. 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 Improve core/hip strength to 4-4+/5 grossly to assist with function. -MET 2. Improve ROSELIA score to 15 or less to improve overall QOL/function. -MET 3. Improve pain at worst to 3/10 or less on VAS to improve overall QOL/function. -NOT MET 4. Perform transfers without pain to assist with function. -MET Plan Plan Discharge to I HEP Eval/Re-Eval Yes Time and Billing Re-Eval Time 10 Re-Eval Billing 0 Units Charge for PT No reassessment? Charge for OT No reassessment? PHYSICIAN CERTIFICATION: I certify the specified therapy services for Raiza Lew are required, authorized, and reviewed every 30 days.
== END 2025-08-08 23:59 | disposition home or self-care (01) ==
LOC: PT 11:00
PROVIDERS: PCP Nurse Practitioner; Visit Provider Nurse Practitioner Family
DX: M54.50 Low back pain, unspecified (principal)
CPT/HCPCS: 97110